=== PATIENT | male | born 1940 | race Caucasian/White ===

== ENCOUNTER → 2016-12-26 | Outpatient (CLI) | payer OTHER ==
[2016-12-26 12:56] LABS: BASO % 0.7 %; BASO ABS # 0.07 K/uL (0-0.2); COMPLETE YES; HEMATOCRIT 47.2 % (42-52); IG% 0.2 %; LYMPH % 45.6 %; LYMPH ABS # 4.43 K/uL (1.2-3.4); MEAN CELL VOLUME 89.7 fL (80-100); MEAN CORPUSCULAR HEMOGLOBIN 31.4 pg (25-34); MEAN PLATELET VOLUME 10.6 fL (7.4-10.4); MONO % 7.7 %; NEUT % 43.8 %; PLATELET COUNT 307 K/uL (130-400); RED BLOOD COUNT 5.26 M/uL (4.7-6.1); WHITE BLOOD COUNT 9.71 K/uL (4.8-10.8)
[2016-12-26 13:14] LABS: ESTIMATED AVERAGE GLUCOSE 108 mg/dl; HA1C FLAG Normal (Normal)
[2016-12-26 13:17] LABS: ALT/SGPT 32 U/L (12-78); AST/SGOT 18 U/L (15-37); BLOOD UREA NITROGEN 18 mg/dl (7-18); BUN/CREATININE RATIO 20.5 (10-20); CALCIUM 9.2 mg/dl (8.5-10.1); CARBON DIOXIDE 25 mmol/L (21-32); CHLORIDE 104 mmol/L (98-107); CHOLESTEROL 169 mg/dl (0-200); CREATININE 0.88 mg/dl (0.60-1.40); GLUCOSE 102 mg/dl (70-99); POTASSIUM 3.7 mmol/L (3.5-5.1); SODIUM 139 mmol/L (136-145); TRIGLYCERIDES 100 mg/dl (0-150); VERY LOW DENSITY LIPOPROT CALC 20 mg/dl
[2016-12-26 13:18] LABS: ALB/GLOB RATIO 1.1 (0.9-2); ALKALINE PHOSPHATASE 50 U/L (45-117); CHOLESTEROL/HDL RATIO 2.9; HDL CHOLESTEROL 58 mg/dl; LDL CHOLESTEROL CALCULATED 91 mg/dl
== END | disposition home or self-care (01) ==
LOC: C.LABBFT 09:20
PROVIDERS: ATTEND Nurse Practitioner
DX: I10 Essential (primary) hypertension (principal); R73.01 Impaired fasting glucose; E78.00 Pure hypercholesterolemia, unspecified

== ENCOUNTER → 2017-04-28 | Outpatient (CLI) | payer OTHER ==
--- NOTE | 2017-04-28 08:28 | DIAGNOSTIC IMAGING REPORT ---
RIGHT VENOUS DOPP LOWER EXT UNILAT CLINICAL HISTORY: M25.561 Right knee pain Right pain. Edema. Pain. Edema. TECHNIQUE: Ultrasound COMPARISON STUDY: None FINDINGS: Normal study IMPRESSION: Normal study The above report was generated using voice recognition software. It may contain grammatical, syntax or spelling errors. Electronically signed by: Len Dallas M.D. 04/28/2017 8:27 AM Dictated Date/Time: 04/28/2017 8:26 AM
== END | disposition home or self-care (01) ==
LOC: C.ULTR 07:59
PROVIDERS: ATTEND Nurse Practitioner
DX: M25.561 Pain in right knee (principal); R60.0 Localized edema; M79.604 Pain in right leg

== ENCOUNTER → 2018-02-12 | Outpatient (CLI) | payer OTHER ==
[2018-02-12 12:13] LABS: BASO % 0.5 %; BASO ABS # 0.05 K/uL (0-0.2); EOS % 1.8 %; EOS ABS # 0.19 K/uL (0-0.5); HEMATOCRIT 48.6 % (42-52); HEMOGLOBIN 16.7 g/dL (14.0-18.0); IG# 0.02 K/uL (0.00-0.02); LYMPH % 36.2 %; LYMPH ABS # 3.79 K/uL (1.2-3.4); MEAN CELL VOLUME 91.9 fL (80-100); MEAN CORPUSCULAR HEMOGLOBIN 31.6 pg (25-34); MEAN CORPUSCULAR HGB CONC 34.4 g/dl (32-36); MEAN PLATELET VOLUME 10.1 fL (7.4-10.4); MONO % 8.2 %; MONO ABS # 0.86 K/uL (0.11-0.59); NEUT % 53.1 %; NEUT ABS # 5.56 K/uL (1.4-6.5); PLATELET COUNT 298 K/uL (130-400); RED CELL DISTRIBUTION WIDTH SD 46.6 fL (36.4-46.3); WHITE BLOOD COUNT 10.47 K/uL (4.8-10.8)
[2018-02-12 12:33] LABS: HEMOGLOBIN A1C 5.4 % (4.5-5.6)
[2018-02-12 12:36] LABS: ALBUMIN 3.8 gm/dl (3.4-5.0); ALT/SGPT 22 U/L (12-78); AST/SGOT 13 U/L (15-37); BLOOD UREA NITROGEN 16 mg/dl (7-18); CARBON DIOXIDE 27 mmol/L (21-32); CHOLESTEROL 132 mg/dl (0-200); CREATININE 0.81 mg/dl (0.60-1.40); GLUCOSE 99 mg/dl (70-99); POTASSIUM 3.9 mmol/L (3.5-5.1); SODIUM 139 mmol/L (136-145)
[2018-02-12 12:39] LABS: ALKALINE PHOSPHATASE 49 U/L (45-117); LDL CHOLESTEROL CALCULATED 60 mg/dl; TOTAL PROTEIN 7.4 gm/dl (6.4-8.2)
== END | disposition home or self-care (01) ==
LOC: C.LABBFT 09:36
PROVIDERS: ATTEND Nurse Practitioner
DX: E78.00 Pure hypercholesterolemia, unspecified (principal); I10 Essential (primary) hypertension; R73.01 Impaired fasting glucose

== ENCOUNTER 2022-12-19 20:50 | Inpatient (IN) ==
[2022-12-19 22:06] LABS: Partial Thromboplastin Ratio 0.9; Partial Thromboplastin Time 25.9 Seconds (21.0-31.0)
[2022-12-19 22:28] LABS: Bilirubin Direct 0.2 mg/dl (0-0.2); Bilirubin,Total 1.2 mg/dl (0.2-1.0); Calcium 8.9 mg/dl (8.5-10.1); Magnesium 2.1 mg/dl (1.7-2.4); Potassium 3.6 mmol/L (3.5-5.1)
[2022-12-19 22:32] LABS: Troponin I High Sensitivity 291.7 pg/ml (0-20)
[2022-12-19 22:34] LABS: BUN Creatinine Ratio 23.1 (10-20); Creatinine Clr Calc Pharmacy 96.8 ml/min; Est GFR (African American) 98.8 ml/min; Est GFR (Non-African American) 85.3 ml/min; Total Protein 7.3 gm/dl (6.0-8.3)
[2022-12-19 22:38] LABS: Basophils # (auto) 0.08 K/uL (0-0.2); Basophils % (auto) 0.8 %; Eosinophils # (auto) 0.06 K/uL (0-0.50); Eosinophils % (auto) 0.6 %; Hematocrit (blood only) 48.3 % (42.0-52.0); Hemoglobin 16.9 g/dl (14.0-18.0); Immature Granulocytes # (auto) 0.03 K/uL (0.01-0.20); Immature Granulocytes % (auto) 0.3 %; Lymphocytes # (auto) 2.27 K/uL (1.2-3.4); Lymphocytes % (auto) 22.6 %; Mean Corpuscular Hemoglobin 31.1 pg (25.0-34.0); Mean Corpuscular Volume 88.8 fL (80.0-100.0); Mean Platelet Volume 10.1 fL (9.4-12.4); Monocytes # (auto) 1.12 K/uL (0.11-0.59); Monocytes % (auto) 11.1 %; Neutrophils # (auto) 6.49 K/uL (1.40-6.50); Neutrophils % (auto) 64.6 %; Platelet Count 222 K/uL (130-400); RDW Coefficient of Variation 13.3 % (11.5-14.5); RDW Standard Deviation 43.2 fL (36.4-46.3); Red Blood Count 5.44 M/uL (4.70-6.10); White Blood Count 10.05 K/ul (4.8-10.8)
[2022-12-19] MEDS ORDERED: OPTIRAY 320 500ml IV ONE (23:03)
--- NOTE | 2022-12-19 23:28 | CT Scan Report ---
Exam(s): CTA CHEST IV Amt: 108ml EXAM: CT Chest With Intravenous Contrast CLINICAL HISTORY: Reason for exam: ro PE. TECHNIQUE: Axial computed tomographic images of the chest with intravenous contrast. CTDI is 22.2 mGy and DLP is 807.38 mGy-cm. Automated exposure control was utilized for the study. A dose lowering technique was utilized adhering to the principles of ALARA. COMPARISON: No relevant prior studies available. FINDINGS: Evaluation is limited by respiratory motion. There is a 5 cm bulla at the medial left lung base. Moderate centrilobular emphysema is noted. There is no airspace consolidation, pulmonary infarct pulmonary mass, or central endobronchial lesion. There is no evidence of pleural effusion or pneumothorax. Thoracic aorta is calcified but normal in caliber. There is no evidence of dissection. There is adequate pulmonary artery opacification. Main pulmonary artery is normal in caliber. There is an acute saddle pulmonary embolism with bilateral lobar, segmental, and subsegmental emboli involving all lung lobes. There is evidence of right ventricular strain with RV/LV ratio measuring 1.7. Heart size is normal. Coronary arteries are calcified. There is no pericardial effusion. There is no adenopathy. There is no acute osseous abnormality. IMPRESSION: 1. Acute saddle pulmonary embolism. Significant bilateral clot burden extending through the lobar, segmental, and subsegmental branches of all lung lobes. 2. Positive for right ventricular strain. RV/LV ratio 1.7. Communications: Call Doctor Pulmonary Embolism Electronically signed by: Jennifer Christy M.D. 12/19/22 23:27 PM
[2022-12-19 23:29] LABS: Base Excess VBG -1.1 mEq/L; HCO3 VBG 24 mmol/L; Oxygen Saturation VBG 62.2 %; PCO2 VBG 42 mmHg (38-50); PO2 VBG 34 mmHg; pH VBG 7.37 (7.36-7.41)
[2022-12-19 23:34] LABS: Influenza A virus by PCR Negative (Neg); Influenza B virus by PCR Negative (Neg); RSV by PCR Negative (Neg); SARS CoV2 RNA(COVID-19) Ceph NEGATIVE (Negative)
[2022-12-19] MEDS ORDERED: fentaNYL citrate PF 100 MCG/2 ML VIAL IV STA (23:39)
[2022-12-19] MEDS ORDERED: Heparin IV Adult Wt-Based Standard WITH Bolus Protocol IV STA (23:39)
[2022-12-19] MEDS ORDERED: HEPARIN SOD (PORCINE) 1000 UNIT/ML IV ONE (23:54)
[2022-12-20] MEDS: HEPARIN SODIUM/DEXTROSE 25,000 UNITS/500 ML BAG IV SCH ×2 (00:12→15:16)
--- NOTE | 2022-12-20 00:47 | Emergency Department Note ---
History of Present Illness General Stated Complaint: SHINGLES/SHORT OF BREATH Time Seen by Provider: 12/19/22 21:22 History of Present Illness Provider Complaint: shortness of breath and cough Onset (ago): day(s) (3) Severity: moderate Consistency/Duration: + progressively worsening Relieved By: + nothing Exacerbated By: + exertion and + coughing Context: + recent illness Associated symptoms: + cough, + sputum production and + chest congestion; no chest pain, no wheezing, no hemoptysis or no nausea/vomiting Home Medications Medication Instructions Recorded Confirmed Type lisinopril 20 1 tab PO QAM #90 tabs 11/07/22 12/19/22 Rx mg-hydrochlorothiazide 25 mg tablet atorvastatin 10 mg tablet (Lipitor) 10 mg PO HS #90 tabs 11/30/22 12/19/22 Rx indomethacin 50 mg capsule 50 mg PO TID PRN gout flare up 11/30/22 12/19/22 Rx #30 caps Allergies Allergy/AdvReac Type Severity Reaction Status Date / Time aspirin Allergy Severe HIVES, Verified 12/19/22 23:53 SWELLING IN FACE pneumococcal 7-valent Allergy Unknown Unknown Verified 12/19/22 23:53 conjugate to [From Prevnar] tetanus and diphtheria Allergy Unknown Unknown Verified 12/19/22 23:53 toxoids [From TDVAX] Past Med/Surg History Medical History Cataract Hx of gout Hypertension Surgical History History of cataract surgery RT History of tooth extraction Family History Denies family history of Ovarian cancer Prostate cancer Myocardial infarction Breast cancer Colorectal cancer Social History Smoking Status: Unknown if ever smoked Tobacco Type: Smokeless Tobacco (Dip or Chew) Second Hand Exposure: No; Hx Alcohol Use: Yes Alcohol type: beer Alcohol Intake Frequency: Monthly or Less Hx Substance Use: No Preferred Language: Kosovan Communication Ability: Effective Visual Impairment: Limited Hearing Ability: Use of Hearing Aid Button Station Worker Required: No Beliefs That Will Affect Care: None marital status: Current Living Situation: Spouse current occupational status: retired Feels Safe at Home: Yes Childhood Exposure to Second-Hand Smoke: No caffeine: Yes during the past year weight has: remained stable Dental Care, Regularly: No Physical Activity Frequency: Daily Seatbelt Use: always Sunscreen Use: No Assistive Devices: Denture - Upper, Denture - Lower, Glasses and Hearing Aid - Bilateral Physical Exam Vital Signs: Vital Signs - 24 hr 12/19/22 21:01 12/19/22 22:11 12/19/22 23:35 Temperature 36.8 C Temperature Source Oral Pulse Rate 150 H Pulse Rate [Left R adial] 113 H 112 H Pulse Rhythm Regular Pulse Rhythm [Left Radial] Regular Regular Pulse Strength Normal Pulse Strength [Le ft Radial] Normal Normal Respiratory Rate 17 15 17 Respiratory Effort / Characteristics Non-Labored Sponta neous Non-Labored Sponta neous Non-Labored Respiratory Depth Normal Normal Normal Respiratory Patter n Regular Regular Regular Blood Pressure 164/102 H Blood Pressure [Ri ght Arm] 147/91 H 155/110 H Blood Pressure Nelda n 122 Blood Pressure Nelda n [Right Arm] 109 125 Pulse Oximetry 87 L 93 92 Oxygen Delivery Me thod Room Air Nasal Cannula Nasal Cannula Oxygen Flow Rate 3 3 Sepsis Recent Feve r Within 48 Hours No Sepsis New/Unexpla ined Change in Men shawn Status No Sepsis Action Take n by Nursing No Action Required 12/20/22 00:47 Temperature Temperature Source Pulse Rate Pulse Rate [Left R adial] 107 H Pulse Rhythm Pulse Rhythm [Left Radial] Regular Pulse Strength Pulse Strength [Le ft Radial] Normal Respiratory Rate 16 Respiratory Effort / Characteristics Non-Labored Sponta neous Respiratory Depth Normal Respiratory Patter n Regular Blood Pressure Blood Pressure [Ri ght Arm] 146/99 H Blood Pressure Nelda n Blood Pressure Nelda n [Right Arm] 114 Pulse Oximetry 93 Oxygen Delivery Me thod Nasal Cannula Oxygen Flow Rate 3 Sepsis Recent Feve r Within 48 Hours Sepsis New/Unexpla ined Change in Men shawn Status Sepsis Action Take n by Nursing Physical Exam: Physical Exam HENT: Exam performed. - Head: Normocephalic and atraumatic. NECK: Normal range of motion. Neck supple. No JVD present. No spinous process tenderness present. No rigidity. No tracheal deviation and normal range of motion present. CV: Tachycardic rate, regular rhythm, normal heart sounds and intact distal pulses. There is no peripheral edema. Palpable radial pulses bue. PULM/CHEST: Tachypneic. No stridor. He has no wheezes. He has no rales. ABD: The abdomen is soft. He has no distension. No mass is present. There is no tenderness. There is no rebound, no guarding, LYMPH: No cervical adenopathy. NEURO: Motor and sensation grossly intact. SKIN: Skin is warm and dry. He is not diaphoretic. Course Course 2121: The patient was evaluated in room C5. A complete history and physical exam was performed Cardiac monitoring: An order was placed for continuous cardiac monitoring. The monitor shows a rate of 130 with sinus tachycardia rhythm interpreted by me Patient was found to be hypoxic on room air. Supplemental oxygen was applied via nasal cannula which improved the patient's oxygen saturation. 2339: Vital signs stable on supplemental oxygen via nasal cannula. Patient reports no shortness of breath while on oxygen. Labs are within normal limits with exception of a troponin of 291.7 as well as a elevated BNP of 156. CTA of the chest shows acute saddle pulmonary embolus with significant bilateral clot burden and extending into the lobar segmental and subsegmental branches of all the lung lobes. There is right ventricular strain. I discussed the case with the ICU team Jsoe SHEET HEATER who asked me to speak with ICU attending Dr. Robins on his cell phone [phone] about potentially giving this patient tPA given his right ventricular strain and elevated troponin. Spoke with Dr. Robins and he stated that if the patient is not hypotensive and tolerating supplemental oxygen well no need for tPA at this time and to begin heparin. [facility] team notified. Administered Medications Heparin Sodium/Dextrose (Heparin Sodium/Dextrose) 25,000 units in 500 mls @ 0.02 mls/hr IV .Q24H [facility]; Protocol Stop: 01/18/23 23:44 Last Admin: 12/20/22 00:12 Dose: 1,650 units/hr, 33 mls/hr Documented By: NERY Co-signed By: SALVADOR Discontinued Medications Fentanyl Citrate (Fentanyl Citrate 100 Mcg/2 Ml Vial) 100 mcg IV NOW STA Stop: 12/19/22 23:40 Last Admin: 12/20/22 00:15 Dose: Not Given Documented By: NERY Heparin Sodium (Porcine) (Heparin Sod (Porcine) 1000 Unit/Ml) 1 units IV NOW ONE Stop: 12/19/22 23:55 Last Admin: 12/20/22 00:12 Dose: 1 units Documented By: NERY Co-signed By: SALVADOR Heparin Sodium/Dextrose (Heparin Iv Adult Wt-Based Standard With Bolus Protocol) 1 each IV NOW STA; Protocol Stop: 12/19/22 23:40 Last Admin: 12/20/22 00:14 Dose: 1 each Documented By: NERY Ioversol (Optiray 320 500ml) 108 ml IV ONCE ONE Stop: 12/19/22 23:04 Last Admin: 12/19/22 23:03 Dose: 108 ml Documented By: ZEYNEP Medical Decision Making Laboratory Data Attestation: I reviewed the patient's lab results. 12/19/22 21:11 12/19/22 21:11 Lab Results 12/19/22 12/19/22 12/19/22 Range/Units 21:11 21:11 21:11 WBC 10.05 (4.8-10.8) K/ul RBC 5.44 (4.70-6.10) M/uL Hgb 16.9 (14.0-18.0) g/dl Hct 48.3 (42.0-52.0) % MCV 88.8 (80.0-100.0) fL MCH 31.1 (25.0-34.0) pg MCHC 35.0 (32.0-36.0) g/dL RDW Std Deviation 43.2 (36.4-46.3) fL RDW Coeff of Manuel 13.3 (11.5-14.5) % Plt Count 222 (130-400) K/uL MPV 10.1 (9.4-12.4) fL Immature Gran % (Auto) 0.3 % Neut % (Auto) 64.6 % Lymph % (Auto) 22.6 % [place] % (Auto) 11.1 % Eos % (Auto) 0.6 % Baso % (Auto) 0.8 % Neut # (Auto) 6.49 (1.40-6.50) K/uL Lymph # (Auto) 2.27 (1.2-3.4) K/uL [place] # (Auto) 1.12 H (0.11-0.59) K/uL Eos # (Auto) 0.06 (0-0.50) K/uL Baso # (Auto) 0.08 (0-0.2) K/uL Immature Gran # (Auto) 0.03 (0.01-0.20) K/uL PT (9.0-12.0) Seconds INR (0.9-1.1) APTT (21.0-31.0) Seconds PTT Ratio VBG pH (7.36-7.41) VBG pCO2 (38-50) mmHg VBG pO2 mmHg VBG HCO3 mmol/L VBG O2 Saturation % VBG Base Excess mEq/L Sodium 137 (136-145) mmol/L Potassium 3.6 (3.5-5.1) mmol/L Chloride 104 (98-107) mmol/L Carbon Dioxide 22 (21-32) mmol/L Anion Gap 11 (3-11) BUN 18 (6-23) mg/dl Creatinine 0.78 (0.6-1.4) mg/dl Est Cr Clr Drug Dosing 96.8 ml/min Est GFR ( Amer) 98.8 ml/min Est GFR (Non-Af Amer) 85.3 ml/min BUN/Creatinine Ratio 23.1 H (10-20) Glucose 138 H (70-99(Fasting)) mg/dl Calcium 8.9 (8.5-10.1) mg/dl Magnesium 2.1 (1.7-2.4) mg/dl Total Bilirubin 1.2 H (0.2-1.0) mg/dl Direct Bilirubin 0.2 (0-0.2) mg/dl AST 15 (13-39) U/L ALT 15 (7-52) U/L Alkaline Phosphatase 56 (34-104) U/L Troponin I High Sens 291.7 H* (0-20) pg/ml B-Natriuretic Peptide 156 H (0-100) pg/ml Total Protein 7.3 (6.0-8.3) gm/dl Albumin 4.0 (3.4-5.0) gm/dl Lipase 29 (11-82) U/L SARS-CoV-2 (PCR) (Negative) Influenza Type A (PCR) (Neg) Influenza Type B (PCR) (Neg) RSV (RT-PCR) (Neg) 12/19/22 12/19/22 12/19/22 Range/Units 21:11 22:00 23:22 WBC (4.8-10.8) K/ul RBC (4.70-6.10) M/uL Hgb (14.0-18.0) g/dl Hct (42.0-52.0) % MCV (80.0-100.0) fL MCH (25.0-34.0) pg MCHC (32.0-36.0) g/dL RDW Std Deviation (36.4-46.3) fL RDW Coeff of Manuel (11.5-14.5) % Plt Count (130-400) K/uL MPV (9.4-12.4) fL Immature Gran % (Auto) % Neut % (Auto) % Lymph % (Auto) % [place] % (Auto) % Eos % (Auto) % Baso % (Auto) % Neut # (Auto) (1.40-6.50) K/uL Lymph # (Auto) (1.2-3.4) K/uL [place] # (Auto) (0.11-0.59) K/uL Eos # (Auto) (0-0.50) K/uL Baso # (Auto) (0-0.2) K/uL Immature Gran # (Auto) (0.01-0.20) K/uL PT 11.0 (9.0-12.0) Seconds INR 1.0 (0.9-1.1) APTT 25.9 (21.0-31.0) Seconds PTT Ratio 0.9 VBG pH 7.37 (7.36-7.41) VBG pCO2 42 (38-50) mmHg VBG pO2 34 mmHg VBG HCO3 24 mmol/L VBG O2 Saturation 62.2 % VBG Base Excess -1.1 mEq/L Sodium (136-145) mmol/L Potassium (3.5-5.1) mmol/L Chloride (98-107) mmol/L Carbon Dioxide (21-32) mmol/L Anion Gap (3-11) BUN (6-23) mg/dl Creatinine (0.6-1.4) mg/dl Est Cr Clr Drug Dosing ml/min Est GFR ( Amer) ml/min Est GFR (Non-Af Amer) ml/min BUN/Creatinine Ratio (10-20) Glucose (70-99(Fasting)) mg/dl Calcium (8.5-10.1) mg/dl Magnesium (1.7-2.4) mg/dl Total Bilirubin (0.2-1.0) mg/dl Direct Bilirubin (0-0.2) mg/dl AST (13-39) U/L ALT (7-52) U/L Alkaline Phosphatase (34-104) U/L Troponin I High Sens (0-20) pg/ml B-Natriuretic Peptide (0-100) pg/ml Total Protein (6.0-8.3) gm/dl Albumin (3.4-5.0) gm/dl Lipase (11-82) U/L SARS-CoV-2 (PCR) NEGATIVE (Negative) Influenza Type A (PCR) Negative (Neg) Influenza Type B (PCR) Negative (Neg) RSV (RT-PCR) Negative (Neg) Imaging Data Attestation: I personally reviewed and interpreted this imaging study as follows: My Impression: Chest x-ray negative. Airway clear. No pneumothorax. No consolidation. No cardiomegaly or cephalization.. No free air under the diaphragm. No fractures of the skeletal structures. Radiologist's Impression: Chest CTA 12/19/22 21:30 CR Exam(s): CTA CHEST IV Amt: 108ml EXAM: CT Chest With Intravenous Contrast CLINICAL HISTORY: Reason for exam: ro PE. TECHNIQUE: Axial computed tomographic images of the chest with intravenous contrast. CTDI is 22.2 mGy and DLP is 807.38 mGy-cm. Automated exposure control was utilized for the study. A dose lowering technique was utilized adhering to the principles of ALARA. COMPARISON: No relevant prior studies available. FINDINGS: Evaluation is limited by respiratory motion. There is a 5 cm bulla at the medial left lung base. Moderate centrilobular emphysema is noted. There is no airspace consolidation, pulmonary infarct pulmonary mass, or central endobronchial lesion. There is no evidence of pleural effusion or pneumothorax. Thoracic aorta is calcified but normal in caliber. There is no evidence of dissection. There is adequate pulmonary artery opacification. Main pulmonary artery is normal in caliber. There is an acute saddle pulmonary embolism with bilateral lobar, segmental, and subsegmental emboli involving all lung lobes. There is evidence of right ventricular strain with RV/LV ratio measuring 1.7. Heart size is normal. Coronary arteries are calcified. There is no pericardial effusion. There is no adenopathy. There is no acute osseous abnormality. IMPRESSION: 1. Acute saddle pulmonary embolism. Significant bilateral clot burden extending through the lobar, segmental, and subsegmental branches of all lung lobes. 2. Positive for right ventricular strain. RV/LV ratio 1.7. Communications: Call Doctor Pulmonary Embolism Electronically signed by: Jennifer Christy M.D. 12/19/22 23:27 PM ECG Data Attestation: I personally reviewed and interpreted this ECG as follows: Interpretation: EKG #1 at 2057: Sinus tachycardia with a rate of 149. No ST elevation or ST depression. EKG #2 at 2129: Sinus tachycardia with a rate of 118. MD QRS and QTc intervals within normal limits. No ST elevation or ST depression. Right bundle branch block present. [facility] Narrative 2121: The patient was evaluated in room C5. A complete history and physical exam was performed Cardiac monitoring: An order was placed for continuous cardiac monitoring. The monitor shows a rate of 130 with sinus tachycardia rhythm interpreted by me Patient was found to be hypoxic on room air. Supplemental oxygen was applied via nasal cannula which improved the patient's oxygen saturation. 9: Vital signs stable on supplemental oxygen via nasal cannula. Patient reports no shortness of breath while on oxygen. Labs are within normal limits with exception of a troponin of 291.7 as well as a elevated BNP of 156. CTA of the chest shows acute saddle pulmonary embolus with significant bilateral clot burden and extending into the lobar segmental and subsegmental branches of all the lung lobes. There is right ventricular strain. I discussed the case with the ICU team Jose BRAXTON who asked me to speak with ICU attending Dr. Robins on his cell phone [phone] about potentially giving this patient tPA given his right ventricular strain and elevated troponin. Spoke with Dr. Robins and he stated that if the patient is not hypotensive and tolerating supplemental oxygen well no need for tPA at this time and to begin heparin. [facility] team notified. Impression & Plan Acute saddle pulmonary embolism Critical Care Time Critical Care Time: Yes Total Critical Care Time: 80 I have personally spent greater than 80 minutes of critical care time in the direct management of this patient. This includes bedside care, interpretation of diagnostic studies, and testing, discussion with consultants, patient, and family members, and other required patient management activities. This 80 minutes is in excess of all separately billable procedures. Discharge Plan Visit Data Chief Complaint: Shortness of Breath/Dyspnea Stated Complaint: SHINGLES/SHORT OF BREATH ED Provider: Moshe Chen Discharge Problem: Acute saddle pulmonary embolism Patient Disposition: Admitted As Inpatient Prescriptions Prescriptions: No Action lisinopril-hydrochlorothiazide 20-25 mg tablet 1 tab PO QAM Qty: 90 3RF atorvastatin [Lipitor] 10 mg tablet 10 mg PO HS Qty: 90 3RF indomethacin 50 mg capsule 50 mg PO TID PRN (Reason: gout flare up ) Qty: 30 1RF Referrals Referrals: Eden Boo CRNP [Primary Care Provider] -
[2022-12-20] MEDS ORDERED: traMADol HCL 50 MG TABLET PO PRN (01:18)
[2022-12-20] MEDS ORDERED: valACYclovir HCL 500 MG TABLET PO ONE (01:20)
[2022-12-20] MEDS ORDERED: ACETAMINOPHEN 325 MG TAB PO PRN (02:28)
[2022-12-20] MEDS ORDERED: ONDANSETRON INJ 2 MG/ML 2 ML VIAL IV PRN (02:28)
--- NOTE | 2022-12-20 05:04 | History & Physical Report ---
Date of Service December 20, 2022 Assessment & Plan (1) Acute saddle pulmonary embolism: (2) Bilateral pulmonary embolism: (3) Gout: (4) Hypercholesterolemia: (5) Hypertension: Plan Acute saddle pulmonary embolism/extensive bilateral pulmonary emboli in lobar, segmental and subsegmental lobes- ED discussed case with pulmonology, and patient will be managed on IV heparin per protocol Admit to monitored bed for close following of oxygenation Right heart strain/NSTEMI/hypertension- The patient will be admitted to telemetry for serial cardiac enzymes, serial EKG's, cardiac rhythm monitoring and a 2-D echocardiogram with Dopplers. Secondary to stress of PE Troponin 291.7 CT scan notes right heart strain Systolic blood pressure in the 140s to 150s Diastolic blood pressure in the 90s to 100s Plan IV heparin as noted above Allow mildly elevated blood pressure in this range overnight Change to cardizem if still increased BP with increased HR overnight Herpes zoster rash right chest wall- Valtrex 1 g 3 times daily Contact precautions, precautions Hyperlipidemia- Continue atorvastatin 10 mg at bedtime Gout- Not active at this time Admission and Anticipated Discharge Date Admission Date: December 20, 2022 History of Present Illness Chief Complaint: The patient reports that he had COVID-19 infection back in July, and has never felt right since that time. He continues to have intermittent problems with fatigue and shortness of breath, however, over the past several days he noticed an acute worsening of shortness of breath and developed severe chest pain. At the same time he developed a painful vesicular rash over his right hemithorax. Primary Care Provider: ANABELLE Shirley The patient is a 82-year-old male with a past medical history including hyperlipidemia, hypertension, and gout flares. He reports that he had contracted COVID-19 infection back in July, and had significant persistent symptoms of fatigue and mild shortness of breath after that time. He reports over the past several days he had developed an acute worsening of shortness of breath and developed generalized chest pain worse with breathing. At the same time that his breathing worsened last week, he developed a painful rash over his right hemithorax. He was treating this at home by laying around, however, his family encouraged him strongly to come to the ED for assessment, which she did today. CT angiography of chest showed an acute saddle pulmonary embolus, and significant bilateral clot burden involving lobar, segmental and subsegmental areas, along with significant right ventricular strain. Significant laboratories: Troponin 291.7, total bilirubin 1.2, BNP 156, WBC 10.05, hemoglobin 16.9, hematocrit 40.3, glucose 138 Allergies Allergy/AdvReac Type Severity Reaction Status Date / Time aspirin Allergy Severe HIVES, Verified 12/19/22 23:53 SWELLING IN FACE pneumococcal 7-valent Allergy Unknown Unknown Verified 12/19/22 23:53 conjugate to [From Prevnar] tetanus and diphtheria Allergy Unknown Unknown Verified 12/19/22 23:53 toxoids [From TDVAX] Home Medications Medication Instructions Recorded Confirmed Type lisinopril 20 1 tab PO QAM #90 tabs 11/07/22 12/19/22 Rx mg-hydrochlorothiazide 25 mg tablet atorvastatin 10 mg tablet (Lipitor) 10 mg PO HS #90 tabs 11/30/22 12/19/22 Rx indomethacin 50 mg capsule 50 mg PO TID PRN gout flare up 11/30/22 12/19/22 Rx #30 caps Past Med/Surg History Medical History Cataract Hx of gout Hypertension Surgical History History of cataract surgery RT History of tooth extraction Family History Denies family history of Ovarian cancer Prostate cancer Myocardial infarction Breast cancer Colorectal cancer Social History Smoking Status: Never smoker Tobacco Type: Smokeless Tobacco (Dip or Chew) Second Hand Exposure: No; Do You Dip or Chew Tobacco: Yes; Hx Alcohol Use: Yes Alcohol type: wine Alcohol Intake Frequency: Monthly or Le ss Hx Substance Use: No Preferred Language: Hungarian Communication Ability: Effective Visual Impairment: Limited Hearing Ability: Use of Hearing Aid 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 Beliefs That Will Affect Care: None marital status: Current Living Situation: Spouse current occupational status: retired Feels Safe at Home: Yes Safety Concerns: Feels Safe At This Time Childhood Exposure to Second-Hand Smoke: No caffeine: Yes during the past year weight has: remained stable Dental Care, Regularly: No Physical Activity Frequency: Daily Seatbelt Use: always Sunscreen Use: No Assistive Devices: Glasses Review of Systems Review of Systems: The patient denies palpitations, lower extremity swelling, sore throat, fevers, chills, sweats, nausea, vomiting, diarrhea , constipation, abdominal pain, pelvic pain, blood in urine or stool, dysuria, urinary frequency or urgency, lightheadedness, dizziness, headache, memory loss, loss of consciousness, rash, abnormal bruising or bleeding, imbalance, focal weakness, numbness or tingling in arms or legs, generalized arthralgias or myalgias, back or neck pain, or night sweats. The review of systems is otherwise negative other than for that already noted above, and at least 10 systems have been reviewed. Physical Exam Physical Exam: The patient is awake, alert and oriented 3, well developed and well nourished, normocephalic and atraumatic, lying in bed and in no acute distress. HEENT--PERRL, EOMI, mucous membranes and oropharynx dry. Neck--supple. No JVD. No bruits. Thyroid normal, trachea midline, no adenopathy. Heart--normal S1 and S2. No murmurs, rubs or gallops. Lungs--decreased breath sounds throughout. Mild respiratory distress, no ac cessory muscle use. Abdomen--normal bowel sounds and soft. Nontender. Nondistended, no hernias or masses, no organomegaly. Extremities--no cyanosis or clubbing. 1+ bilateral pretibial edema. Dermatologic--painful dermatomal vesicular rash over right hemithorax from mid axilla line toward sternum Neurologic--cranial nerves II through XII grossly intact. Rheumatologic--limited exam Psychiatric--normal affect. Results & Data Results & Data ([facility]) Vital Signs (Past 12 Hours) Vital Signs Temp Pulse Pulse Resp BP BP BP 12/20/22 03:00 12/20/22 03:00 36.6 C 118 H 22 152/105 H 12/20/22 02:25 106 H 16 105/74 12/20/22 02:14 37.1 C 106 H 15 146/94 H 12/20/22 02:00 105 H 12/19/22 21:29 115 H 12/20/22 01:23 107 H 15 138/85 12/20/22 00:47 107 H 16 146/99 H 12/19/22 23:35 112 H 17 155/110 H 12/19/22 22:11 113 H 15 147/91 H 12/19/22 21:01 36.8 C 150 H 17 164/102 H Pulse Ox O2 Del Method O2 Flow Rate 12/20/22 03:00 Nasal Cannula 4 12/20/22 03:00 92 Nasal Cannula 4 12/20/22 02:25 94 Nasal Cannula 3 12/20/22 02:14 94 Nasal Cannula 3 12/20/22 02:00 12/19/22 21:29 12/20/22 01:23 94 Nasal Cannula 3 12/20/22 00:47 93 Nasal Cannula 3 12/19/22 23:35 92 Nasal Cannula 3 12/19/22 22:11 93 Nasal Cannula 3 12/19/22 21:01 87 L Room Air Laboratory Results Laboratory Results WBC 10.05 K/ul (4.8-10.8) 12/19/22 21:11 RBC 5.44 M/uL (4.70-6.10) 12/19/22 21:11 Hgb 16.9 g/dl (14.0-18.0) 12/19/22 21:11 Hct 48.3 % (42.0-52.0) 12/19/22 21:11 MCV 88.8 fL (80.0-100.0) 12/19/22 21:11 MCH 31.1 pg (25.0-34.0) 12/19/22 21:11 MCHC 35.0 g/dL (32.0-36.0) 12/19/22 21:11 RDW Std Deviation 43.2 fL (36.4-46.3) 12/19/22 21:11 RDW Coeff of Manuel 13.3 % (11.5-14.5) 12/19/22 21:11 Plt Count 222 K/uL (130-400) 12/19/22 21:11 MPV 10.1 fL (9.4-12.4) 12/19/22 21:11 Immature Gran % (Auto) 0.3 % 12/19/22 21:11 Neut % (Auto) 64.6 % 12/19/22 21:11 Lymph % (Auto) 22.6 % 12/19/22 21:11 [place] % (Auto) 11.1 % 12/19/22 21:11 Eos % (Auto) 0.6 % 12/19/22 21:11 Baso % (Auto) 0.8 % 12/19/22 21:11 Neut # (Auto) 6.49 K/uL (1.40-6.50) 12/19/22 21:11 Lymph # (Auto) 2.27 K/uL (1.2-3.4) 12/19/22 21:11 [place] # (Auto) 1.12 K/uL (0.11-0.59) H 12/19/22 21:11 Eos # (Auto) 0.06 K/uL (0-0.50) 12/19/22 21:11 Baso # (Auto) 0.08 K/uL (0-0.2) 12/19/22 21:11 Immature Gran # (Auto) 0.03 K/uL (0.01-0.20) 12/19/22 21:11 PT 11.0 Seconds (9.0-12.0) 12/19/22 21:11 INR 1.0 (0.9-1.1) 12/19/22 21:11 APTT 25.9 Seconds (21.0-31.0) 12/19/22 21:11 PTT Ratio 0.9 12/19/22 21:11 VBG pH 7.37 (7.36-7.41) 12/19/22 23:22 VBG pCO2 42 mmHg (38-50) 12/19/22 23:22 VBG pO2 34 mmHg 12/19/22 23:22 VBG HCO3 24 mmol/L 12/19/22 23:22 VBG O2 Saturation 62.2 % 12/19/22 23:22 VBG Base Excess -1.1 mEq/L 12/19/22 23:22 Sodium 137 mmol/L (136-145) 12/19/22 21:11 Potassium 3.6 mmol/L (3.5-5.1) 12/19/22 21:11 Chloride 104 mmol/L (98-107) 12/19/22 21:11 Carbon Dioxide 22 mmol/L (21-32) 12/19/22 21:11 Anion Gap 11 (3-11) 12/19/22 21:11 BUN 18 mg/dl (6-23) 12/19/22 21:11 Creatinine 0.78 mg/dl (0.6-1.4) 12/19/22 21:11 Est Cr Clr Drug Dosing 96.8 ml/min 12/19/22 21:11 Est GFR ( Amer) 98.8 ml/min 12/19/22 21:11 Est GFR (Non-Af Amer) 85.3 ml/min 12/19/22 21:11 BUN/Creatinine Ratio 23.1 (10-20) H 12/19/22 21:11 Glucose 138 mg/dl (70-99(Fasting)) H 12/19/22 21:11 Calcium 8.9 mg/dl (8.5-10.1) 12/19/22 21:11 Magnesium 2.1 mg/dl (1.7-2.4) 12/19/22 21:11 Total Bilirubin 1.2 mg/dl (0.2-1.0) H 12/19/22 21:11 Direct Bilirubin 0.2 mg/dl (0-0.2) 12/19/22 21:11 AST 15 U/L (13-39) 12/19/22 21:11 ALT 15 U/L (7-52) 12/19/22 21:11 Alkaline Phosphatase 56 U/L (34-104) 12/19/22 21:11 Troponin I High Sens 972.8 pg/ml (0-20) H* D 12/20/22 03:31 B-Natriuretic Peptide 156 pg/ml (0-100) H 12/19/22 21:11 Total Protein 7.3 gm/dl (6.0-8.3) 12/19/22 21:11 Albumin 4.0 gm/dl (3.4-5.0) 12/19/22 21:11 Lipase 29 U/L (11-82) 12/19/22 21:11 SARS-CoV-2 (PCR) NEGATIVE (Negative) 12/19/22 22:00 Influenza Type A (PCR) Negative (Neg) 12/19/22 22:00 Influenza Type B (PCR) Negative (Neg) 12/19/22 22:00 RSV (RT-PCR) Negative (Neg) 12/19/22 22:00 Impressions Chest CTA 12/19/22 21:30 CR Exam(s): CTA CHEST IV Amt: 108ml EXAM: CT Chest With Intravenous Contrast CLINICAL HISTORY: Reason for exam: ro PE. TECHNIQUE: Axial computed tomographic images of the chest with intravenous contrast. CTDI is 22.2 mGy and DLP is 807.38 mGy-cm. Automated exposure control was utilized for the study. A dose lowering technique was utilized adhering to the principles of ALARA. COMPARISON: No relevant prior studies available. FINDINGS: Evaluation is limited by respiratory motion. There is a 5 cm bulla at the medial left lung base. Moderate centrilobular emphysema is noted. There is no airspace consolidation, pulmonary infarct pulmonary mass, or central endobronchial lesion. There is no evidence of pleural effusion or pneumothorax. Thoracic aorta is calcified but normal in caliber. There is no evidence of dissection. There is adequate pulmonary artery opacification. Main pulmonary artery is normal in caliber. There is an acute saddle pulmonary embolism with bilateral lobar, segmental, and subsegmental emboli involving all lung lobes. There is evidence of right ventricular strain with RV/LV ratio measuring 1.7. Heart size is normal. Coronary arteries are calcified. There is no pericardial effusion. There is no adenopathy. There is no acute osseous abnormality. IMPRESSION: 1. Acute saddle pulmonary embolism. Significant bilateral clot burden extending through the lobar, segmental, and subsegmental branches of all lung lobes. 2. Positive for right ventricular strain. RV/LV ratio 1.7. Communications: Call Doctor Pulmonary Embolism Electronically signed by: Jennifer Christy M.D. 12/19/22 23:27 PM Code Status & VTE Plan Code Status Full code VTE Prophylaxis Plan VTE Prophylaxis will be ordered: Yes PG Care Time/CCT Total # of Minutes Spent Total Time Spent with Patient: Total time spent is greater than 50% in coordination of care (as documented) at patient's floor/unit and/or counseling patient: Coding Level of Care Code 01246 INT INP/OBS CARE 3/75MIN Diagnoses Acute saddle pulmonary embolism I26.02 Acute cor pulmonale presence: with acute cor pulmonale Bilateral pulmonary embolism I26.99 Gout M10.9 Hypercholesterolemia E78.00 Hypertension I10 (1) Acute saddle pulmonary embolism Acute cor pulmonale presence: with acute cor pulmonale Qualified Code(s): I26.02 - Saddle embolus of pulmonary artery with acute cor pulmonale
[2022-12-20 06:33] LABS: Basophils # (auto) 0.09 K/uL (0-0.2); Basophils % (auto) 0.8 %; Eosinophils # (auto) 0.04 K/uL (0-0.50); Eosinophils % (auto) 0.4 %; Hematocrit (blood only) 48.3 % (42.0-52.0); Hemoglobin 16.6 g/dl (14.0-18.0); Immature Granulocytes # (auto) 0.05 K/uL (0.01-0.20); Immature Granulocytes % (auto) 0.5 %; Lymphocytes # (auto) 3.71 K/uL (1.2-3.4); Lymphocytes % (auto) 34.5 %; Mean Corpuscular Hemoglobin 30.9 pg (25.0-34.0); Mean Corpuscular Hgb Conc 34.4 g/dL (32.0-36.0); Mean Corpuscular Volume 89.9 fL (80.0-100.0); Monocytes # (auto) 1.15 K/uL (0.11-0.59); Monocytes % (auto) 10.7 %; Neutrophils # (auto) 5.72 K/uL (1.40-6.50); Neutrophils % (auto) 53.1 %; Platelet Count 240 K/uL (130-400); RDW Coefficient of Variation 13.4 % (11.5-14.5); RDW Standard Deviation 43.9 fL (36.4-46.3); Red Blood Count 5.37 M/uL (4.70-6.10); White Blood Count 10.76 K/ul (4.8-10.8)
[2022-12-20 06:34] LABS: Albumin Globulin Ratio 1.4 (0.9-2); Albumin Level 3.8 gm/dl (3.4-5.0); BUN Creatinine Ratio 21.4 (10-20); Calcium 8.8 mg/dl (8.5-10.1); Creatinine Clr Calc Pharmacy 89.2 ml/min; Est GFR (African American) 95.8 ml/min; Est GFR (Non-African American) 82.7 ml/min; Globulin 2.8 gm/dl (2.5-4.0); Potassium 4.4 mmol/L (3.5-5.1); Total Protein 6.6 gm/dl (6.0-8.3)
[2022-12-20 06:45] LABS: INR 1.1 (0.9-1.1); Prothrombin Time 11.4 Seconds (9.0-12.0)
[2022-12-20 07:01] LABS: Partial Thromboplastin Ratio 2.1
--- NOTE | 2022-12-20 07:12 | Ultrasound Report ---
US venous doppler LE BI CLINICAL HISTORY: PE TECHNIQUE: Bilateral lower extremity real-time compression venous ultrasound with Color Doppler imagi ng. Utilizing real-time ultrasonic imaging multiple real time high-resolution ultrasonic images with compression and noncompression maneuvers of the deep venous system in addition to color doppler imagi ng were performed from the common femoral vein through the proximal calf veins. COMPARISON: Right lower extremity venous Doppler 04/28/2017 FINDINGS/IMPRESSION: There is a venous thrombus in the right popliteal cyst and posterior tibial veins. No thrombus is see n in the left. No superficial venous thrombosis is identified. ACT 112: Negative or not required by law. Electronically signed by: Bhavesh Nicole M.D. 12/20/2022 7:10 AM
[2022-12-20 07:28] LABS: Partial Thromboplastin Time 58.4 Seconds (21.0-31.0)
--- NOTE | 2022-12-20 07:47 | XRay Report ---
XR chest 1V portable CLINICAL HISTORY: sob TECHNIQUE: Single frontal radiograph of the chest was obtained. Comparison: None available at the time of this dictation. FINDINGS: No lines and tubes are seen. The cardiomediastinal silhouette is normal. There is mild opacity over t he left lower lung. No evidence of pleural effusion or pneumothorax. IMPRESSION: Mild left lower lung airspace opacity may represent atelectasis, pneumonia, and/or aspiration ACT 112: Negative or not required by law. Electronically signed by: Bhavesh Nicole M.D. 12/20/2022 7:45 AM
[2022-12-20] MEDS: valACYclovir HCL 500 MG TABLET PO SCH ×3 (09:23→20:33)
[2022-12-20] MEDS: LISINOPRIL/HCTZ 20/25MG 1 TAB PO SCH (09:23)
--- NOTE | 2022-12-20 16:23 | Hospitalist Progress Note ---
Date of Service December 20, 2022 Assessment & Plan (1) Acute saddle pulmonary embolism: Plan: Acute saddle/extensive bilateral PE secondary to right lower extremity DVT Likely secondary to sedentary lifestyle Patient has been quite sedentary since his last COVID infection 5 months ago Currently on IV heparin drip Vital signs fairly stable although requiring oxygen per nasal cannula and slightly tachycardic Troponin elevated and CT chest showing signs of right heart strain Echocardiogram completed, report pending We will allow mildly elevated blood pressure (2) Bilateral pulmonary embolism: Plan: Please see above (3) Deep vein thrombosis, lower right extremity: Plan: Likely cause of the PE Management same as PE Please see above (4) Shingles: Plan: Herpes zoster in the right chest wall and right upper back On Valtrex 1 g 3 times daily Continue contact precautions (5) Gout: Plan: Not active at this time (6) Hypercholesterolemia: Plan: Continue statin (7) Hypertension: Plan: Continue lisinopril Admission and Anticipated Discharge Date Admission Date: December 20, 2022 Subjective Patient states that he feels better overall. He walked to the bathroom and did not feel short of breath. He denied feeling dizzy or lightheaded when he walked. On questioning, he stated that he does not have much pain at the site of the rash. Review of Systems Review of Systems: All systems reviewed & are unremarkable except as noted in Subjective Physical Exam Physical Exam: General: Awake, conversant Heart: S1, S2/regular rate and rhythm, no murmur rubs or gallops Lungs: Clear to auscultation bilaterally. Normal effort. Rash noted in right upper back and right hemithorax. Abdomen: Soft/nontender/nondistended. No hepatosplenomegaly Extremities: No clubbing/cyanosis. No edema Behavior: Appropriate, cooperative Results & Data Results & Data ([facility]) Vital Signs (Past 12 Hours) Vital Signs Temp Pulse Pulse Resp BP Pulse Ox O2 Del Method 12/20/22 15:49 100 H 12/20/22 15:23 100 H 12/20/22 08:00 Nasal Cannula 12/20/22 11:00 36.7 C 93 H 18 127/74 97 Room Air 12/20/22 08:00 36.9 C 86 20 148/69 H 97 Nasal Cannula 12/20/22 05:30 103 H 20 138/93 93 Nasal Cannula O2 Flow Rate 12/20/22 15:49 03/14/23 15:23 12/20/22 08:00 4 12/20/22 11:00 12/20/22 08:00 12/20/22 05:30 4 Laboratory Results Abnormal lab results 12/19/22 12/19/22 12/19/22 Range/Units 21:11 21:11 21:11 Lymph # (Auto) (1.2-3.4) K/uL [place] # (Auto) 1.12 H (0.11-0.59) K/uL APTT (21.0-31.0) Seconds BUN/Creatinine Ratio 23.1 H (10-20) Glucose 138 H (70-99(Fasting)) mg/dl Total Bilirubin 1.2 H (0.2-1.0) mg/dl Troponin I High Sens 291.7 H* (0-20) pg/ml B-Natriuretic Peptide 156 H (0-100) pg/ml 12/20/22 12/20/22 12/20/22 Range/Units 03:31 05:51 05:51 Lymph # (Auto) 3.71 H (1.2-3.4) K/uL [place] # (Auto) 1.15 H (0.11-0.59) K/uL APTT (21.0-31.0) Seconds BUN/Creatinine Ratio 21.4 H (10-20) Glucose 129 H (70-99(Fasting)) mg/dl Total Bilirubin (0.2-1.0) mg/dl Troponin I High Sens 972.8 H* D (0-20) pg/ml B-Natriuretic Peptide (0-100) pg/ml 12/20/22 12/20/22 12/20/22 Range/Units 05:51 09:35 15:22 Lymph # (Auto) (1.2-3.4) K/uL [place] # (Auto) (0.11-0.59) K/uL APTT 58.4 H* (21.0-31.0) Seconds BUN/Creatinine Ratio (10-20) Glucose (70-99(Fasting)) mg/dl Total Bilirubin (0.2-1.0) mg/dl Troponin I High Sens 772.5 H* D 480.6 H* D (0-20) pg/ml B-Natriuretic Peptide (0-100) pg/ml Diagnostic Findings Chest CTA 12/19/22 21:30 CR Exam(s): CTA CHEST IV Amt: 108ml EXAM: CT Chest With Intravenous Contrast CLINICAL HISTORY: Reason for exam: ro PE. TECHNIQUE: Axial computed tomographic images of the chest with intravenous contrast. CTDI is 22.2 mGy and DLP is 807.38 mGy-cm. Automated exposure control was utilized for the study. A dose lowering technique was utilized adhering to the principles of ALARA. COMPARISON: No relevant prior studies available. FINDINGS: Evaluation is limited by respiratory motion. There is a 5 cm bulla at the medial left lung base. Moderate centrilobular emphysema is noted. There is no airspace consolidation, pulmonary infarct pulmonary mass, or central endobronchial lesion. There is no evidence of pleural effusion or pneumothorax. Thoracic aorta is calcified but normal in caliber. There is no evidence of dissection. There is adequate pulmonary artery opacification. Main pulmonary artery is normal in caliber. There is an acute saddle pulmonary embolism with bilateral lobar, segmental, and subsegmental emboli involving all lung lobes. There is evidence of right ventricular strain with RV/LV ratio measuring 1.7. Heart size is normal. Coronary arteries are calcified. There is no pericardial effusion. There is no adenopathy. There is no acute osseous abnormality. IMPRESSION: 1. Acute saddle pulmonary embolism. Significant bilateral clot burden extending through the lobar, segmental, and subsegmental branches of all lung lobes. 2. Positive for right ventricular strain. RV/LV ratio 1.7. Communications: Call Doctor Pulmonary Embolism Electronically signed by: Jennifer Christy M.D. 12/19/22 23:27 PM Chest X-Ray 12/19/22 21:30 XR chest 1V portable CLINICAL HISTORY: sob TECHNIQUE: Single frontal radiograph of the chest was obtained. Comparison: None available at the time of this dictation. FINDINGS: No lines and tubes are seen. The cardiomediastinal silhouette is normal. There is mild opacity over the left lower lung. No evidence of pleural effusion or pneumothorax. IMPRESSION: Mild left lower lung airspace opacity may represent atelectasis, pneumonia, and /or aspiration ACT 112: Negative or not required by law. Electronically signed by: Bhavesh Nicole M.D. 12/20/2022 7:45 AM Venous Doppler Study 12/20/22 04:50 US venous doppler LE BI CLINICAL HISTORY: PE TECHNIQUE: Bilateral lower extremity real-time compression venous ultrasound with Color Doppler imaging. Utilizing real-time ultrasonic imaging multiple real time high-resolution ultrasonic images with compression and noncompression maneuvers of the deep venous system in addition to color doppler imaging were performed from the common femoral vein through the proximal calf veins. COMPARISON: Right lower extremity venous Doppler 04/28/2017 FINDINGS/IMPRESSION: There is a venous thrombus in the right popliteal cyst and posterior tibial veins. No thrombus is seen in the left. No superficial venous thrombosis is identified. ACT 112: Negative or not required by law. Electronically signed by: Bhavesh Nicole M.D. 12/20/2022 7:10 AM PG Care Time/CCT Total # of Minutes Spent Total Time Spent with Patient: Total time spent is greater than 50% in coordination of care (as documented) at patient's floor/unit and/or counseling patient: Coding Level of Care Code None Diagnoses Acute saddle pulmonary embolism I26.02 Acute cor pulmonale presence: with acute cor pulmonale Bilateral pulmonary embolism I26.99 Deep vein thrombosis, lower right extremity I82.401 Shingles B02.9 Gout M10.9 Hypercholesterolemia E78.00 Hypertension I10 (1) Acute saddle pulmonary embolism Acute cor pulmonale presence: with acute cor pulmonale Qualified Code(s): I26.02 - Saddle embolus of pulmonary artery with acute cor pulmonale
--- NOTE | 2022-12-20 17:15 | XCELERA ---
[id number]
[2022-12-20] MEDS: ATORVASTATIN 10 MG TAB PO SCH (20:33)
[2022-12-21] MEDS: HEPARIN SODIUM/DEXTROSE 25,000 UNITS/500 ML BAG IV SCH ×2 (05:23→20:46)
--- NOTE | 2022-12-21 06:09 | Electrocardiogram Report ---
Test Reason : Blood Pressure : / mmHG Vent. Rate : 149 BPM Atrial Rate : 357 BPM P-R Int : 000 ms QRS Dur : 094 ms QT Int : 324 ms P-R-T Axes : 000 -50 052 degrees QTc Int : 510 ms Poor data quality, interpretation may be adversely affected Possible Sinus tachycardia Left axis deviation Low voltage QRS Incomplete right bundle branch block Nonspecific ST and T wave abnormality Abnormal ECG No previous ECGs available Confirmed by Jasbir Bell ([id number]) on 12/21/2022 6:08:44 AM Referred By: REFERRED SELF Confirmed By:Jasbir Bell
--- NOTE | 2022-12-21 06:10 | Electrocardiogram Report ---
Test Reason : Blood Pressure : / mmHG Vent. Rate : 118 BPM Atrial Rate : 118 BPM P-R Int : 170 ms QRS Dur : 092 ms QT Int : 316 ms P-R-T Axes : 099 -33 057 degrees QTc Int : 442 ms Poor data quality, interpretation may be adversely affected Sinus tachycardia Left axis deviation Low voltage QRS Incomplete right bundle branch block Inferior infarct , age undetermined Abnormal ECG When compared with ECG of 19-DEC-2022 20:58, Inverted T waves have replaced nonspecific T wave abnormality in Anterior leads Confirmed by Jasbir Bell ([id number]) on 12/21/2022 6:09:33 AM Referred By: REFERRED SELF Confirmed By:Jasbir Bell
[2022-12-21 06:41] LABS: Hematocrit (blood only) 48.1 % (42.0-52.0); Hemoglobin 16.3 g/dl (14.0-18.0); Mean Corpuscular Hemoglobin 30.7 pg (25.0-34.0); Mean Corpuscular Hgb Conc 33.9 g/dL (32.0-36.0); Mean Corpuscular Volume 90.6 fL (80.0-100.0); Platelet Count 238 K/uL (130-400); RDW Coefficient of Variation 13.5 % (11.5-14.5); Red Blood Count 5.31 M/uL (4.70-6.10); White Blood Count 12.47 K/ul (4.8-10.8)
[2022-12-21 06:55] LABS: Albumin Globulin Ratio 1.2 (0.9-2); Albumin Level 3.6 gm/dl (3.4-5.0); BUN Creatinine Ratio 27.2 (10-20); Bilirubin,Total 1.1 mg/dl (0.2-1.0); Calcium 8.4 mg/dl (8.5-10.1); Creatinine Clr Calc Pharmacy 81.4 ml/min; Est GFR (African American) 90.7 ml/min; Est GFR (Non-African American) 78.3 ml/min; Globulin 2.9 gm/dl (2.5-4.0); Magnesium 2.2 mg/dl (1.7-2.4); Potassium 3.5 mmol/L (3.5-5.1); Total Protein 6.5 gm/dl (6.0-8.3)
[2022-12-21 07:26] LABS: INR 1.1 (0.9-1.1); Partial Thromboplastin Ratio 2.2; Prothrombin Time 11.3 Seconds (9.0-12.0)
[2022-12-21 07:32] LABS: Partial Thromboplastin Time 59.2 Seconds (21.0-31.0)
[2022-12-21 07:52] LABS: ALC (manual) 5.99 K/uL (1.2-3.4); ANC (manual) 5.74 K/uL (1.4-6.5); Basophils # (manual) 0.12 K/uL (0-0.2); Basophils % (manual) 1 %; Eosinophils # (manual) 0.12 K/uL (0-0.50); Eosinophils % (manual) 1 %; Large Granular Lymph # (manua 4.24 K/uL; Large Granular Lymph % (manual) 34 %; Lymphocytes # (manual) 1.75 K/uL (1.2-3.4); Lymphocytes % (manual) 14 %; Monocytes % (manual) 4 %; Neutrophils # (manual) 5.74 K/uL (1.40-6.50); Neutrophils % (manual) 46 %; Smudge Cells Present
[2022-12-21] MEDS: LISINOPRIL/HCTZ 20/25MG 1 TAB PO SCH (08:38)
[2022-12-21] MEDS: valACYclovir HCL 500 MG TABLET PO SCH ×3 (08:39→20:47)
--- NOTE | 2022-12-21 11:19 | Hospitalist Progress Note ---
Date of Service December 21, 2022 Assessment & Plan (1) Acute saddle pulmonary embolism: Plan: Acute saddle/extensive bilateral PE secondary to right lower extremity DVT Likely secondary to sedentary lifestyle Patient has been quite sedentary since his last COVID infection 5 months ago Currently on IV heparin drip. will continue for a total of 3 days at least given the extent of clot burden. Will likely p.o. Eliquis upon discharge Vital signs fairly stable although requiring oxygen per nasal cannula. Not tachycardic anymore. 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 Will need outpatient heme-onc referral for hypercoagulable work-up in future (2) Bilateral pulmonary embolism: Plan: Please see above (3) Deep vein thrombosis, lower right extremity: Plan: Likely cause of the PE Management same as PE Please see above (4) Shingles: Plan: Herpes zoster in the right chest wall and right upper back On Valtrex 1 g 3 times daily Continue contact precautions (5) Gout: Plan: Not active at this time (6) Hypercholesterolemia: Plan: Continue statin (7) Hypertension: Plan: Continue lisinopril (8) Lymphocytosis: Plan: * Workup had initiated with recent outpatient visit with Flow Cytometry Analysis performed on 11/30/2022. * Flow cytometry report:"Flow detects an increase in T-cell large granular lymphocytes, which can be seen in some reactive conditions. However a T-cell lymphoproliferative disorder (E.G.T-cell large granular lymphocytic leukemia) cannot be entirely excluded by flow cytometry alone. 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 Hematology/oncology consultation is recommended." * Patient may benefit from Heme/Onc referral moving forward, who might also be able to weigh in on anticoagulation moving forward. Particularly if this does represent a lymphocytic process that certainly might make the patient more coagulopathic. Admission and Anticipated Discharge Date Admission Date: December 20, 2022 Subjective Patient feels well. Denies chest pain. Says that he gets a little short of breath when he walks to the bathroom and back. He denies feeling dizzy or lightheaded Physical Exam Physical Exam: General: Awake, conversant Heart: S1, S2/regular rate and rhythm, no murmur rubs or gallops Lungs: Clear to auscultation bilaterally. Normal effort. Rash noted in right upper back and right hemithorax. Abdomen: Soft/nontender/nondistended. No hepatosplenomegaly Extremities: No clubbing/cyanosis. No edema Behavior: Appropriate, cooperative Results & Data Results & Data Vital Signs (Past 12 Hours) Vital Signs Temp Pulse Resp BP Pulse Ox O2 Del Method O2 Flow Rate 12/21/22 09:51 Nasal Cannula 4 12/21/22 07:42 36.8 C 79 20 122/77 94 Nasal Cannula 4 12/21/22 05:00 36.6 C 81 18 124/78 94 Nasal Cannula 4 12/21/22 03:30 80 16 PG Care Time/CCT Total # of Minutes Spent Total Time Spent: 35 Total Time Spent with Patient: I spent 35 minutes in the care of this patient. The time was spent in talking to the patient, nurse, care management team, gear machine operator, reviewing the chart, formulating plan and placing the orders accordingly. Coding Level of Care Code 43669 SUB INP/OBS CARE 2/35MIN Diagnoses Acute saddle pulmonary embolism I26.02 Acute cor pulmonale presence: with acute cor pulmonale Bilateral pulmonary embolism I26.99 Deep vein thrombosis, lower right extremity I82.401 Shingles B02.9 Gout M10.9 Hypercholesterolemia E78.00 Hypertension I10 Lymphocytosis D72.820 (1) Acute saddle pulmonary embolism Acute cor pulmonale presence: with acute cor pulmonale Qualified Code(s): I26.02 - Saddle embolus of pulmonary artery with acute cor pulmonale
--- NOTE | 2022-12-21 14:25 | Pulmonary Consultation ---
Date of Consultation December 21, 2022 Assessment & Plan (1) Acute saddle pulmonary embolism: Acute cor pulmonale presence: with acute cor pulmonale Qualified Code(s): I26.02 - Saddle embolus of pulmonary artery with acute cor pulmonale (2) Deep vein thrombosis, lower right extremity: (3) Lymphocytosis: Plan IMPRESSION: 82-year-old male presenting with saddle pulmonary embolism in the setting of acute dyspnea now requiring 4 L nasal cannula. Pulmonary medicine consulted for aid in ongoing management. RECOMMENDATIONS: 1. Acute saddle pulmonary embolism - * This would likely be considered an unprovoked event or, if reaching, could refer to this as a provoked event in the setting of prolonged COVID-19 infection with ongoing weakness, poor mobility, and morbid obesity which are not not modifiable and would likely need to be treated the same. * Would continue with heparin drip for now while the patient is hospitalized. Can transition to DOAC when ready for discharge. * Per current guidelines, recommendations would suggest initiation of either apixaban, dabigatran, edoxaban, or rivaroxaban over Coumadin. * Given the unprovoked VTE (or provocation by persistent risk factors that are not modifiable), recommendation would be for offering extended-phase anticoagulation with a DOAC. * Patient would benefit from outpatient follow-up echo to be performed in the next 3-4 months to evaluate for any ongoing concerns for pulmonary hypertension. 2. DVT - * As above * No need for evaluation for IVC filter. 3. Lymphocytosis - * Workup had initiated with recent outpatient visit with Flow Cytometry Analysis performed on 11/30/2022. * Flow cytometry report: * "Flow detects an increase in T-cell large granular lymphocytes, which can be seen in some reactive conditions. However a T-cell lymphoproliferative disorder (E.G.T-cell large granular lymphocytic leukemia) cannot be entirely excluded by flow cytometry alone. 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 Hematology/oncology consultation is recommended." * Patient may benefit from Heme/Onc consultation moving forward, who might also be able to weigh in on anticoagulation moving forward. Particularly if this does represent a lymphocytic process that certainly might make the patient more coagulopathic. * Patient reports symptoms of generalized fatigue and poor appetite. No unintentional weight loss. No night sweats. No other beta symptoms. Thank you for allowing us to participate in the care of this patient. Please reach out to us if we can be of any other assistance. Supervising Physician Co-Signing Physician Notes EMR reviewed. Discussed with KYLE. Physical exam was deferred as the patient is in isolation for varicella. Nonhemodynamically significant acute PE. Agree with recommendations for plan with anticoagulation with eventual transition to DOAC. Given the lack of modifiable risk factors, could make a case for lifelong anticoagulation. Would defer hypercoagulable work-up with the exception of age-appropriate cancer screening. Would continue to wean oxygen as tolerated. If the patient can be up and around and oxygen levels managed appropriately, he may be able to transition to an oral anticoagulant at the time of discharge. Follow-up echocardiogram in 3 months to ensure improvement in the right ventricular systolic function and morphology. We will continue to follow with you. History of Present Illness Reason for Consultation: "extensive b/l PE with RV strain" Requesting Physician: Dr. Hollins Attending Physician: Kiko Hollins MD History of Present Illness Patient is an 82-year-old male with significant past medical history of hypercholesterolemia, impaired [place] glucose, obesity, hypertension, and lymphocytosis. Patient reports that after a COVID-19 infection in July of this past year, then generally weak and fatigued. He admits that he has not been doing much and has been sitting majority of the day. He reports that he did have some shortness of breath back in July during the active infection, however that had since subsided. He had return of symptoms of shortness of breath 2 days ago after a shower. He states that he could not catch his breath until he sat down for several minutes. This prompted visit to the emergency department. During evaluation, the patient was noted to have a large saddle PE with heart strain, troponin leak, and elevated BNP. Fortunately, the patient remained normotensive and saturating well on 3 to 4 L nasal cannula. Patient was started on a heparin drip. Pulmonary medicine was consulted for evaluation and the patient with large PE with significant clot burden. Upon evaluation at bedside, the patient is awake, alert, and oriented. He reports that he is able to ambulate to and from the restroom without significant shortness of breath. He denies any complaints of chest pain, palpitations, dizziness, lightheadedness, presyncope, hemoptysis, nausea, vomiting, or abdominal discomfort. The patient reports no personal history of blood clots/b leeding disorders. He reports no family history of the same. Patient has a prior history of smoking. He reports approximately a pack a day for 20 years. He quit 30 years ago. Prior to this past week, he has had no sustained issues with his breathing. He is able to carry on his activities of daily living including ambulating up and down steps without issue. He reports no history of wheezing, chronic cough, recent hospitalizations for pulmonary issues, recurrent pneumonias, or antibiotic/steroid use for lung infections. Otherwise, the patient reports feeling much better than when he initially arrived to this institution. Allergies Allergy/AdvReac Type Severity Reaction Status Date / Time aspirin Allergy Severe HIVES, Verified 12/19/22 23:53 SWELLING IN FACE pneumococcal 7-valent Allergy Unknown Unknown Verified 12/19/22 23:53 conjugate to [From Prevnar] tetanus and diphtheria Allergy Unknown Unknown Verified 12/19/22 23:53 toxoids [From TDVAX] Home Medications Medication Instructions Recorded Confirmed Type lisinopril 20 1 tab PO QAM #90 tabs 11/07/22 12/19/22 Rx mg-hydrochlorothiazide 25 mg tablet atorvastatin 10 mg tablet (Lipitor) 10 mg PO HS #90 tabs 11/30/22 12/19/22 Rx indomethacin 50 mg capsule 50 mg PO TID PRN gout flare up 11/30/22 12/19/22 Rx #30 caps Patient History Medical History Cataract Hx of gout Hypertension Surgical History History of cataract surgery RT History of tooth extraction Family History Denies family history of Ovarian cancer Prostate cancer Myocardial infarction Breast cancer Colorectal cancer Social History Smoking Status: Never smoker Tobacco Type: Smokeless Tobacco (Dip or Chew) Second Hand Exposure: No; Hx Alcohol Use: Yes Alcohol type: wine Alcohol Intake Frequency: Monthly or Less Hx Substance Use: No Preferred Language: Mongolian Communication Ability: Effective Visual Impairment: Limited Hearing Ability: Use of Hearing Aid Education Reviewer Required: No Beliefs That Will Affect Care: None marital status: Current Living Situation: Spouse current occupational status: retired Feels Safe at Home: Yes Childhood Exposure to Second-Hand Smoke: No caffeine: Yes during the past year weight has: remained stable Dental Care, Regularly: No Physical Activity Frequency: Daily Seatbelt Use: always Sunscreen Use: No Assistive Devices: None Review of Systems Review of Systems: A complete 10 point review of systems was reviewed with the patient with pertinent positives and negatives as per history of present illness. All else were negative. Physical Exam Physical Exam: VITAL SIGNS - Vital signs and nursing notes were reviewed. GENERAL - 82-year-old male appearing his stated age who is in no acute distress. Communicates well with provider and answers questions appropriately. HEAD - NC/AT. EYES - PERRL with EOMI bilaterally. Sclera anicteric. NOSE - Midline and without cyanosis. MOUTH/OROPHARYNX - Without perioral cyanosis. NECK - Neck with FROM. LUNGS - Chest wall symmetric without accessory muscle use, intercostals retractions, or central cyanosis. Normal vesicular breath sounds CTA B/L. No wheezes, rales, or rhonchi appreciated. CARDIAC - RRR with S1/S2. No murmur, rubs, or gallops appreciated. ABDOMEN - Abdominal contour obese without pulsations or visible masses. BS normoactive all four quadrants. No tenderness, palpable masses, hepatosplenomegaly, or ascites noted. EXTREMITIES - No clubbing or peripheral cyanosis. No pretibial edema present. +3/5 radial and dorsalis pedis pulses palpated throughout. +5/5 strength noted in UE/LE bilaterally. NEUROLOGIC - Cranial nerves II through XII grossly intact. PSYCH - A&Ox3 and cooperates fully with examiner. Pt is very pleasant and interacts well with examiner. Results & Data Results & Data Vital Signs (Past 12 Hours) Vital Signs Temp Pulse Resp BP Pulse Ox O2 Del Method O2 Flow Rate 12/21/22 11:12 36.7 C 83 19 105/66 94 Nasal Cannula 4 12/21/22 09:51 Nasal Cannula 4 12/21/22 07:42 36.8 C 79 20 122/77 94 Nasal Cannula 12/21/22 05:00 36.6 C 81 18 124/78 94 Nasal Cannula 4 12/21/22 03:30 80 16 PG Care Time/CCT Total # of Minutes Spent Total Time Spent with Patient: Total time spent is greater than 50% in coordination of care (as documented) at patient's floor/unit and/or counseling patient: Coding Level of Care Code 66001 INT INP/OBS CARE 3/75MIN Diagnoses Acute saddle pulmonary embolism I26.02 Acute cor pulmonale presence: with acute cor pulmonale Deep vein thrombosis, lower right extremity I82.401 Lymphocytosis D72.820
[2022-12-21] MEDS: ATORVASTATIN 10 MG TAB PO SCH (20:47)
[2022-12-22] MEDS: valACYclovir HCL 500 MG TABLET PO SCH ×3 (08:07→20:40)
[2022-12-22] MEDS: LISINOPRIL/HCTZ 20/25MG 1 TAB PO SCH (08:07)
[2022-12-22 08:24] LABS: Basophils # (auto) 0.07 K/uL (0-0.2); Basophils % (auto) 0.7 %; Eosinophils # (auto) 0.29 K/uL (0-0.50); Eosinophils % (auto) 2.7 %; Hematocrit (blood only) 43.1 % (42.0-52.0); Hemoglobin 15.1 g/dl (14.0-18.0); Immature Granulocytes # (auto) 0.04 K/uL (0.01-0.20); Immature Granulocytes % (auto) 0.4 %; Lymphocytes # (auto) 3.47 K/uL (1.2-3.4); Lymphocytes % (auto) 32.6 %; Mean Corpuscular Hemoglobin 30.9 pg (25.0-34.0); Mean Corpuscular Volume 88.1 fL (80.0-100.0); Mean Platelet Volume 9.9 fL (9.4-12.4); Monocytes # (auto) 0.91 K/uL (0.11-0.59); Monocytes % (auto) 8.5 %; Neutrophils # (auto) 5.87 K/uL (1.40-6.50); Neutrophils % (auto) 55.1 %; Platelet Count 251 K/uL (130-400); RDW Coefficient of Variation 13.4 % (11.5-14.5); RDW Standard Deviation 43.6 fL (36.4-46.3); Red Blood Count 4.89 M/uL (4.70-6.10); White Blood Count 10.65 K/ul (4.8-10.8)
[2022-12-22 08:46] LABS: Albumin Globulin Ratio 1.3 (0.9-2); Albumin Level 3.4 gm/dl (3.4-5.0); BUN Creatinine Ratio 28.8 (10-20); Bilirubin,Total 1.1 mg/dl (0.2-1.0); Calcium 8.2 mg/dl (8.5-10.1); Creatinine Clr Calc Pharmacy 93.9 ml/min; Est GFR (African American) 97.8 ml/min; Est GFR (Non-African American) 84.4 ml/min; Globulin 2.7 gm/dl (2.5-4.0); Magnesium 2.2 mg/dl (1.7-2.4); Potassium 3.1 mmol/L (3.5-5.1); Total Protein 6.1 gm/dl (6.0-8.3)
[2022-12-22 09:05] LABS: INR 1.1 (0.9-1.1); Partial Thromboplastin Ratio 2.5; Prothrombin Time 11.2 Seconds (9.0-12.0)
[2022-12-22 09:11] LABS: Partial Thromboplastin Time 66.3 Seconds (21.0-31.0)
[2022-12-22] MEDS ORDERED: POTASSIUM CHLORIDE CRTAB 20 MEQ TABCR PO STA (09:58)
[2022-12-22] MEDS: POTASSIUM CHLORIDE / WTR 10 MEQ/100 ML PLCT IV SCH ×4 (10:27→13:25)
--- NOTE | 2022-12-22 12:02 | Hospitalist Progress Note ---
Date of Service December 22, 2022 Assessment & Plan (1) Acute saddle pulmonary embolism: Plan: Acute saddle/extensive bilateral PE secondary to right lower extremity DVT Likely secondary to sedentary lifestyle Patient has been quite sedentary since his last COVID infection 5 months ago Currently on IV heparin drip. will continue for a total of 3 days at least given the extent of clot burden. Will likely switch to p.o. Eliquis tomorrow. Orthostatic vital signs ordered for today Will consult PT/OT tomorrow if orthostatic vital signs are stable Vital signs fairly stable although requiring oxygen per nasal cannula. Not tachycardic anymore. Requiring 3 L of oxygen today. 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 Will need outpatient heme-onc referral for hypercoagulable work-up in future (2) Bilateral pulmonary embolism: Plan: Please see above (3) Deep vein thrombosis, lower right extremity: Plan: Likely cause of the PE Management same as PE Please see above (4) Shingles: Plan: Herpes zoster in the right chest wall and right upper back On Valtrex 1 g 3 times daily Continue contact precautions (5) Gout: Plan: Not active at this time (6) Hypercholesterolemia: Plan: Continue statin (7) Hypertension: Plan: Continue lisinopril (8) Lymphocytosis: Plan: * Workup had initiated with recent outpatient visit with Flow Cytometry Analysis performed on 11/30/2022. * Flow cytometry report:"Flow detects an increase in T-cell large granular lymphocytes, which can be seen in some reactive conditions. However a T-cell lymphoproliferative disorder (E.G.T-cell large granular lymphocytic leukemia) cannot be entirely excluded by flow cytometry alone. 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 Hematology/oncology consultation is recommended." * Patient may benefit from Heme/Onc referral moving forward, who might also be able to weigh in on anticoagulation moving forward. Particularly if this does represent a lymphocytic process that certainly might make the patient more coagulopathic. Admission and Anticipated Discharge Date Admission Date: December 20, 2022 Subjective Patient feels well. Denies chest pain. Denies feeling dizzy. Gets short of breath on exertion. Review of Systems Review of Systems: All systems reviewed & are unremarkable except as noted in Subjective Physical Exam Physical Exam: General: Awake, conversant Heart: S1, S2/regular rate and rhythm, no murmur rubs or gallops Lungs: Clear to auscultation bilaterally. Normal effort. Rash noted in right upper back and right hemithorax. Abdomen: Soft/nontender/nondistended. No hepatosplenomegaly Extremities: No clubbing/cyanosis. No edema Behavior: Appropriate, cooperative Results & Data Results & Data Vital Signs (Past 12 Hours) Vital Signs Temp Pulse Resp BP BP Pulse Ox O2 Del Method 12/22/22 11:47 36.6 C 74 18 130/80 94 Nasal Cannula 12/22/22 10:45 84 124/60 12/22/22 10:46 84 121/76 12/22/22 10:45 76 133/79 12/22/22 07:29 36.9 C 69 18 135/78 97 Nasal Cannula 12/22/22 03:15 36.6 C 66 19 90/54 L 96 Nasal Cannula O2 Flow Rate 12/22/22 11:47 12/22/22 10:45 12/22/22 10:46 12/22/22 10:45 12/22/22 07:29 4 12/22/22 03:15 Laboratory Results Abnormal lab results 12/22/22 12/22/22 12/22/22 Range/Units 07:53 07:53 07:53 Lymph # (Auto) 3.47 H (1.2-3.4) K/uL [place] # (Auto) 0.91 H (0.11-0.59) K/uL APTT 66.3 H* (21.0-31.0) Seconds Potassium 3.1 L (3.5-5.1) mmol/L BUN/Creatinine Ratio 28.8 H (10-20) Glucose 117 H (70-99(Fasting)) mg/dl Calcium 8.2 L (8.5-10.1) mg/dl Total Bilirubin 1.1 H (0.2-1.0) mg/dl PG Care Time/CCT Total # of Minutes Spent Total Time Spent: 35 Total Time Spent with Patient: I spent 35 minutes in the care of this patient. The time was spent in talking to the patient, nurse, care management team, reviewing the chart, formulating plan and placing the orders accordingly. Coding Level of Care Code 84286 SUB INP/OBS CARE 2/35MIN Diagnoses Acute saddle pulmonary embolism I26.02 Acute cor pulmonale presence: with acute cor pulmonale Bilateral pulmonary embolism I26.99 Deep vein thrombosis, lower right extremity I82.401 Shingles B02.9 Gout M10.9 Hypercholesterolemia E78.00 Hypertension I10 Lymphocytosis D72.820 (1) Acute saddle pulmonary embolism Acute cor pulmonale presence: with acute cor pulmonale Qualified Code(s): I26.02 - Saddle embolus of pulmonary artery with acute cor pulmonale
--- NOTE | 2022-12-22 12:52 | Pulmonology Progress Note ---
Date of Service December 22, 2022 Assessment & Plan (1) Acute saddle pulmonary embolism: Acute cor pulmonale presence: with acute cor pulmonale Qualified Code(s): I26.02 - Saddle embolus of pulmonary artery with acute cor pulmonale (2) Deep vein thrombosis, lower right extremity: (3) Lymphocytosis: Plan IMPRESSION: 82-year-old male presenting with saddle pulmonary embolism in the setting of acute dyspnea now requiring 2 L nasal cannula. Pulmonary medicine consulted for aid in ongoing management. RECOMMENDATIONS: 1. Acute saddle pulmonary embolism - * Patient able to ambulate around the room without significant shortness of breath. * Is now only requiring 2L NC. * Discussed with primary nurse. She will continue to titrate down O2 as tolerated. She reports he has been ambulating well today and overall seems improved. * As previously discussed: * This would likely be considered an unprovoked event or, if reaching, could refer to this as a provoked event in the setting of prolonged COVID-19 infection with ongoing weakness, poor mobility, and morbid obesity which are not not modifiable and would likely need to be treated the same. * Would continue with heparin drip for now while the patient is hospitalized. Can transition to DOAC when ready for discharge. * Per current guidelines, recommendations would suggest initiation of either apixaban, dabigatran, edoxaban, or rivaroxaban over Coumadin. * Given the unprovoked VTE (or provocation by persistent risk factors that are not modifiable), recommendation would be for offering extended-phase anticoagulation with a DOAC. * Patient would benefit from outpatient follow-up echo to be performed in the next 3-4 months to evaluate for any ongoing concerns for pulmonary hypertension. 2. DVT - * As above * No need for evaluation for IVC filter. 3. Lymphocytosis - * Workup had initiated with recent outpatient visit with Flow Cytometry Analysis performed on 11/30/2022. * Flow cytometry report: * "Flow detects an increase in T-cell large granular lymphocytes, which can be seen in some reactive conditions. However a T-cell lymphoproliferative disorder (E.G.T-cell large granular lymphocytic leukemia) cannot be entirely excluded by flow cytometry alone. 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 Hematology/oncology consultation is recommended." * Patient may benefit from Heme/Onc consultation moving forward, who might also be able to weigh in on anticoagulation moving forward. Particularly if this does represent a lymphocytic process that certainly might make the patient more coagulopathic. * Patient reports symptoms of generalized fatigue and poor appetite. No unintentional weight loss. No night sweats. No other beta symptoms. Thank you for allowing us to participate in the care of this patient. Pulmonary medicine will sign off at this time. Admission and Anticipated Discharge Date Admission Date: December 20, 2022 Subjective Patient was seen and evaluated at bedside. He reports that his shortness of breath has improved. He is down to 2 L nasal cannula. He reports no chest pain, palpitations, lightheadedness, or near syncope. Review of Systems Review of Systems: A complete 10 point review of systems was reviewed with the patient with pertinent positives and negatives as per history of present illness. All else were negative. Physical Exam Physical Exam: VITAL SIGNS - Vital signs and nursing notes were reviewed. GENERAL - 82-year-old male appearing his stated age who is in no acute distress. Communicates well with provider and answers questions appropriately. NOSE - Midline and without cyanosis. MOUTH/OROPHARYNX - Without perioral cyanosis. NECK - Neck with FROM. LUNGS - No wheezes, rales, or rhonchi appreciated. CARDIAC - RRR with S1/S2. No murmur, rubs, or gallops appreciated. ABDOMEN - Abdominal contour obese without pulsations or visible masses. BS normoactive all four quadrants. No tenderness, palpable masses, hepatosplenomegaly, or ascites noted. EXTREMITIES - No clubbing or peripheral cyanosis. No pretibial edema present. +3/5 radial and dorsalis pedis pulses palpated throughout. +5/5 strength noted in UE/LE bilaterally. PSYCH - A&Ox3 and cooperates fully with examiner. Pt is very pleasant and interacts well with examiner. Results & Data Results & Data Vital Signs (Past 12 Hours) Vital Signs Temp Pulse Pulse Resp BP BP Pulse Ox 12/22/22 10:08 64 12/22/22 11:47 36.6 C 74 18 130/80 94 12/22/22 10:45 84 124/60 12/22/22 10:46 84 121/76 12/22/22 10:45 76 133/79 12/22/22 07:29 36.9 C 69 18 135/78 97 12/22/22 03:15 36.6 C 66 19 90/54 L 96 O2 Del Method O2 Flow Rate 12/22/22 10:08 12/22/22 11:47 Nasal Cannula 12/22/22 10:45 12/22/22 10:46 12/22/22 10:45 12/22/22 07:29 Nasal Cannula 4 12/22/22 03:15 Nasal Cannula PG Care Time/CCT Total # of Minutes Spent Total Time Spent with Patient: Total time spent is greater than 50% in coordination of care (as documented) at patient's floor/unit and/or counseling patient: Coding Level of Care Code 77907 SUB INP/OBS CARE 2/35MIN Diagnoses Acute saddle pulmonary embolism I26.02 Acute cor pulmonale presence: with acute cor pulmonale Deep vein thrombosis, lower right extremity I82.401 Lymphocytosis D72.820
[2022-12-22] MEDS: HEPARIN SODIUM/DEXTROSE 25,000 UNITS/500 ML BAG IV SCH (13:22)
[2022-12-22] MEDS: ATORVASTATIN 10 MG TAB PO SCH (20:40)
[2022-12-23] MEDS: HEPARIN SODIUM/DEXTROSE 25,000 UNITS/500 ML BAG IV SCH (05:12)
--- NOTE | 2022-12-23 06:13 | Electrocardiogram Report ---
Test Reason : Blood Pressure : / mmHG Vent. Rate : 089 BPM Atrial Rate : 089 BPM P-R Int : 156 ms QRS Dur : 092 ms QT Int : 408 ms P-R-T Axes : 081 -43 223 degrees QTc Int : 497 ms Normal sinus rhythm Left axis deviation T wave abnormality, consider anterior ischemia Possible Inferior infarct Prolonged QT Abnormal ECG When compared with ECG of 19-DEC-2022 21:30, QT has lengthened Confirmed by Jasbir Bell ([id number]) on 12/23/2022 6:13:11 AM Referred By: REFERRED SELF Confirmed By:Jasbir Bell
[2022-12-23 07:31] LABS: Partial Thromboplastin Time 54.7 Seconds (21.0-31.0)
[2022-12-23] MEDS ORDERED: HEPARIN-STOP ORDER ONE (08:00)
[2022-12-23] MEDS: APIXABAN 5 MG TABLET PO SCH ×2 (09:11→20:08)
[2022-12-23] MEDS: LISINOPRIL/HCTZ 20/25MG 1 TAB PO SCH (09:11)
[2022-12-23] MEDS: valACYclovir HCL 500 MG TABLET PO SCH ×3 (09:11→20:09)
--- NOTE | 2022-12-23 14:50 | Hospitalist Progress Note ---
Date of Service December 23, 2022 Assessment & Plan (1) Acute saddle pulmonary embolism: Plan: Acute saddle/extensive bilateral PE secondary to right lower extremity DVT Likely secondary to sedentary lifestyle Patient has been quite sedentary since his last COVID infection 5 months ago Currently on IV heparin drip. Discontinue heparin drip and switch to p.o. Eliquis Orthostatic vital signs negative PT/OT on board Vital signs fairly stable although requiring oxygen per nasal cannula. Not tachycardic anymore. Requiring 2 L of oxygen on ambulation which is being arranged for Troponin elevated and CT chest showing signs of right heart strain Echocardiogram showed signs of RV strain as well Script Developer on board, agrees with the plan. Will need outpatient heme-onc referral for hypercoagulable work-up in future (2) Bilateral pulmonary embolism: Plan: Plan as above (3) Deep vein thrombosis, lower right extremity: Plan: Plan as above (4) Shingles: Plan: Herpes zoster in the right chest wall and right upper back On Valtrex 1 g 3 times daily Continue contact precautions (5) Gout: Plan: Not active at this time (6) Hypercholesterolemia: Plan: Continue statin (7) Hypertension: Plan: Continue lisinopril (8) Lymphocytosis: Plan: * Workup had initiated with recent outpatient visit with Flow Cytometry Analysis performed on 11/30/2022. * Flow cytometry report:"Flow detects an increase in T-cell large granular lymphocytes, which can be seen in some reactive conditions. However a T-cell lymphoproliferative disorder (E.G.T-cell large granular lymphocytic leukemia) cannot be entirely excluded by flow cytometry alone. 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 Hematology/oncology consultation is recommended." * Patient may benefit from Heme/Onc referral moving forward, who might also be able to weigh in on anticoagulation moving forward. Particularly if this does represent a lymphocytic process that certainly might make the patient more coagulopathic. Admission and Anticipated Discharge Date Admission Date: December 20, 2022 Subjective Patient feels well. Denies chest pain or shortness of breath. Review of Systems Review of Systems: All systems reviewed & are unremarkable except as noted in Subjective Physical Exam Physical Exam: General: Awake, conversant Heart: S1, S2/regular rate and rhythm, no murmur rubs or gallops Lungs: Clear to auscultation bilaterally. Normal effort. Rash noted in right upper back and right hemithorax. Abdomen: Soft/nontender/nondistended. No hepatosplenomegaly Extremities: No clubbing/cyanosis. No edema Behavior: Appropriate, cooperative Results & Data Results & Data Vital Signs (Past 12 Hours) Vital Signs Temp Pulse Pulse Pulse Pulse Pulse Resp 12/23/22 11:00 12/23/22 12:17 36.6 C 75 18 12/23/22 11:40 86 91 H 90 79 12/23/22 08:00 12/23/22 08:10 36.4 C L 79 16 12/23/22 03:22 37.0 C 65 18 Resp Resp Resp Resp BP BP Pulse Ox 12/23/22 11:00 12/23/22 12:17 125/73 90 12/23/22 11:40 20 20 20 18 12/23/22 08:00 12/23/22 08:10 131/73 93 12/23/22 03:22 118/79 95 Pulse Ox Pulse Ox Pulse Ox Pulse Ox Pulse Ox O2 Del Method O2 Flow Rate 12/23/22 11:00 80 L Room Air 12/23/22 12:17 Room Air 12/23/22 11:40 92 87 L 90 91 12/23/22 08:00 Nasal Cannula 1 12/23/22 08:10 Room Air 12/23/22 03:22 Nasal Cannula O2 Flow Rate 12/23/22 11:00 12/23/22 12:17 12/23/22 11:40 2 12/23/22 08:00 12/23/22 08:10 12/23/22 03:22 Laboratory Results Abnormal lab results 12/23/22 Range/Units 06:10 APTT 54.7 H* (21.0-31.0) Seconds PG Care Time/CCT Total # of Minutes Spent Total Time Spent with Patient: Total time spent is greater than 50% in coordination of care (as documented) at patient's floor/unit and/or counseling patient: Coding Level of Care Code 55407 SUB INP/OBS CARE 2/35MIN Diagnoses Acute saddle pulmonary embolism I26.02 Acute cor pulmonale presence: with acute cor pulmonale Bilateral pulmonary embolism I26.99 Deep vein thrombosis, lower right extremity I82.401 Shingles B02.9 Gout M10.9 Hypercholesterolemia E78.00 Hypertension I10 Lymphocytosis D72.820 (1) Acute saddle pulmonary embolism Acute cor pulmonale presence: with acute cor pulmonale Qualified Code(s): I26.02 - Saddle embolus of pulmonary artery with acute cor pulmonale
[2022-12-23] MEDS: ATORVASTATIN 10 MG TAB PO SCH (20:09)
--- NOTE | 2022-12-24 00:22 | Electrocardiogram Report ---
Test Reason : Blood Pressure : / mmHG Vent. Rate : 070 BPM Atrial Rate : 070 BPM P-R Int : 164 ms QRS Dur : 096 ms QT Int : 484 ms P-R-T Axes : 071 -35 270 degrees QTc Int : 522 ms Poor data quality, interpretation may be adversely affected Normal sinus rhythm Left axis deviation Prolonged QT Abnormal ECG When compared with ECG of 21-DEC-2022 05:34, QT has lengthened Confirmed by Jasbir Bell ([id number]) on 12/24/2022 12:22:02 AM Referred By: REFERRED SELF Confirmed By:Jasbir Bell
[2022-12-24 06:52] LABS: Basophils # (auto) 0.06 K/uL (0-0.2); Basophils % (auto) 0.6 %; Eosinophils # (auto) 0.32 K/uL (0-0.50); Eosinophils % (auto) 3.5 %; Hematocrit (blood only) 43.1 % (42.0-52.0); Immature Granulocytes # (auto) 0.04 K/uL (0.01-0.20); Immature Granulocytes % (auto) 0.4 %; Lymphocytes # (auto) 3.23 K/uL (1.2-3.4); Lymphocytes % (auto) 34.9 %; Mean Corpuscular Hemoglobin 30.9 pg (25.0-34.0); Mean Corpuscular Hgb Conc 34.8 g/dL (32.0-36.0); Mean Corpuscular Volume 88.9 fL (80.0-100.0); Mean Platelet Volume 9.7 fL (9.4-12.4); Monocytes # (auto) 0.84 K/uL (0.11-0.59); Monocytes % (auto) 9.1 %; Neutrophils # (auto) 4.76 K/uL (1.40-6.50); Neutrophils % (auto) 51.5 %; Platelet Count 293 K/uL (130-400); RDW Coefficient of Variation 13.2 % (11.5-14.5); Red Blood Count 4.85 M/uL (4.70-6.10); White Blood Count 9.25 K/ul (4.8-10.8)
[2022-12-24 07:17] LABS: Calcium 8.4 mg/dl (8.5-10.1); Potassium 3.5 mmol/L (3.5-5.1)
[2022-12-24 07:22] LABS: BUN Creatinine Ratio 19.2 (10-20); Creatinine Clr Calc Pharmacy 95.9 ml/min; Est GFR (African American) 98.8 ml/min; Est GFR (Non-African American) 85.3 ml/min
[2022-12-24 07:48] LABS: Partial Thromboplastin Ratio 1.2; Partial Thromboplastin Time 32.3 Seconds (21.0-31.0)
[2022-12-24] MEDS: valACYclovir HCL 500 MG TABLET PO SCH (08:28)
[2022-12-24] MEDS: APIXABAN 5 MG TABLET PO SCH (08:29)
[2022-12-24] MEDS: LISINOPRIL/HCTZ 20/25MG 1 TAB PO SCH (08:29)
--- NOTE | 2022-12-24 10:39 | Discharge Summary ---
Date of Service December 24, 2022 Admission HPI Per Admitting Provider The patient is a 82-year-old male with a past medical history including hyperlipidemia, hypertension, and gout flares. He reports that he had contracted COVID-19 infection back in July, and had significant persistent symptoms of fatigue and mild shortness of breath after that time. He reports over the past several days he had developed an acute worsening of shortness of breath and developed generalized chest pain worse with breathing. At the same time that his breathing worsened last week, he developed a painful rash over his right hemithorax. He was treating this at home by laying around, however, his family encouraged him strongly to come to the ED for assessment, which she did today. CT angiography of chest showed an acute saddle pulmonary embolus, and significant bilateral clot burden involving lobar, segmental and subsegmental areas, along with significant right ventricular strain. Significant laboratories: Troponin 291.7, total bilirubin 1.2, BNP 156, WBC 10.05, hemoglobin 16.9, hematocrit 40.3, glucose 138 Admission Exam Per Admitting Provider The patient is awake, alert and oriented 3, well developed and well nourished, normocephalic and atraumatic, lying in bed and in no acute distress. HEENT--PERRL, EOMI, mucous membranes and oropharynx dry. Neck--supple. No JVD. No bruits. Thyroid normal, trachea midline, no adenopathy. Heart--normal S1 and S2. No murmurs, rubs or gallops. Lungs--decreased breath sounds throughout. Mild respiratory distress, no accessory muscle use. Abdomen--normal bowel sounds and soft. Nontender. Nondistended, no hernias or masses, no organomegaly. Extremities--no cyanosis or clubbing. 1+ bilateral pretibial edema. Dermatologic--painful dermatomal vesicular rash over right hemithorax from mid axilla line toward sternum Neurologic--cranial nerves II through XII grossly intact. Rheumatologic--limited exam Psychiatric--normal affect. Principal Diagnosis Acute saddle and bilateral PE, right lower extremity DVT, shingles Discharge Exam General: Awake, conversant Heart: S1, S2/regular rate and rhythm, no murmur rubs or gallops Lungs: Clear to auscultation bilaterally. Normal effort. Rash noted in right upper back and right hemithorax, crusting. Abdomen: Soft/nontender/nondistended. No hepatosplenomegaly Extremities: No clubbing/cyanosis. No edema Behavior: Appropriate, cooperative Discharge Data Allergies Allergy/AdvReac Type Severity Reaction Status Date / Time aspirin Allergy Severe HIVES, Verified 12/19/22 23:53 SWELLING IN FACE pneumococcal 7-valent Allergy Unknown Unknown Verified 12/19/22 23:53 conjugate to [From Prevnar] tetanus and diphtheria Allergy Unknown Unknown Verified 12/19/22 23:53 toxoids [From TDVAX] Consultations 12/19/22 23:40 ED Decision to Admit Stat 12/21/22 11:17 Consult Pulmonology Routine Ordered Studies 12/19/22 21:30 CT angio chest PE protocol Stat 12/20/22 04:50 US venous doppler [facility] Urgent Hospital Course (1) Acute saddle pulmonary embolism: Acute saddle/extensive bilateral PE secondary to right lower extremity DVT Likely secondary to sedentary lifestyle Patient has been quite sedentary since his last COVID infection 5 months ago Currently on IV heparin drip. Discontinue heparin drip and switch to p.o. Eliquis Orthostatic vital signs negative PT/OT on board Vital signs fairly stable although requiring oxygen per nasal cannula. Not tachycardic anymore. Requiring 2 L of oxygen on ambulation which is being arranged for Troponin elevated and CT chest showing signs of right heart strain Echocardiogram showed signs of RV strain as well Certified Ophthalmic Assistant on board, agrees with the plan. Will need outpatient heme-onc referral for hypercoagulable work-up in future (2) Bilateral pulmonary embolism: Plan as above (3) Deep vein thrombosis, lower right extremity: Plan as above (4) Shingles: Herpes zoster in the right chest wall and right upper back On Valtrex 1 g 3 times daily to complete a 7-day course (5) Gout: Not active at this time (6) Hypercholesterolemia: Continue statin (7) Hypertension: Continue lisinopril (8) Lymphocytosis: * Workup had initiated with recent outpatient visit with Flow Cytometry Analysis performed on 11/30/2022. * Flow cytometry report:"Flow detects an increase in T-cell large granular lymphocytes, which can be seen in some reactive conditions. However a T-cell lymphoproliferative disorder (E.G.T-cell large granular lymphocytic leukemia) cannot be entirely excluded by flow cytometry alone. 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 Hematology/oncology consultation is recommended." * Patient may benefit from Heme/Onc referral moving forward, who might also be able to weigh in on anticoagulation moving forward. Particularly if this does represent a lymphocytic process that certainly might make the patient more coagulopathic. Total Time Total Time Spent Total Time Spent (In Minutes): 35 Discharge Plan Discharge Items Patient Disposition: Home - Self-Care Reason For Visit: SADDLE PE W/ RIGHTT HEART STRAIN, NSTEMI Discharge Diagnosis: Acute saddle and bilateral PE, acute DVT Activity: Resume your previous activity Non-emergency contact: Primary Care Provider Call non-emergency contact if: your symptoms worsen Follow-up/Referrals: Eden Boo CRNP [Primary Care Provider] - Diet: Heart Healthy Addtl Attending Provider Instructions: Follow-up with PCP in 1 week Follow-up with hematology in 1 month Pending Studies at Discharge: No Stand-Alone Forms: My [facility] [employer] Medications and DC Order Prescriptions: New Eliquis 5 mg Tablet 10 mg PO BID Qty: 28 0RF Eliquis 5 mg tablet 5 mg PO BID Qty: 60 0RF Rx Instructions: Start on 12/30 after first 7 days of 10mg bid. valacyclovir 500 mg Tablet 1,000 mg PO TID Qty: 2 0RF valacyclovir [Valtrex] 1 gram tablet 1,000 mg PO Q8H Qty: 8 0RF Continued lisinopril-hydrochlorothiazide 20-25 mg tablet 1 tab PO QAM Qty: 90 3RF atorvastatin [Lipitor] 10 mg tablet 10 mg PO HS Qty: 90 3RF indomethacin 50 mg capsule 50 mg PO TID PRN (Reason: gout flare up ) Qty: 30 1RF Discharge Orders: Discharge Order (Routine); Ordered 12/24/22 Ordered By: Kiko Baez/Other Patient Handouts: Shingles (Herpes Zoster), DVT Tx, Venous Thromboembolism Admission Data Admit Date/Time: 12/20/22 01:18 Attending Provider: Kiko Hollins Admit Provider: Robert Chavarria Primary Care Provider: Eden Boo Other Providers: Robert Chavarria ; Atif Robins Other Interventions: Discharge Summary Assessment (RN) Last Done: 12/24/22 10:44 Coding Level of Care Code 30529 INP/OBS DISCH >30 MIN Diagnoses Acute saddle pulmonary embolism I26.02 Acute cor pulmonale presence: with acute cor pulmonale Bilateral pulmonary embolism I26.99 Deep vein thrombosis, lower right extremity I82.401 Shingles B02.9 Gout M10.9 Hypercholesterolemia E78.00 Hypertension I10 Lymphocytosis D72.820 Time Spent (min) 35
== END 2022-12-24 12:10 | disposition home or self-care (01) | DRG 175 ==
LOC: ED 20:50 → SUATTDRO 12-20 01:18 → 2E 12-20 01:18

== ENCOUNTER 2024-06-06 20:52 | Observation (INO) ==
--- NOTE | 2024-06-06 21:28 | Emergency Department Note ---
Impression & Plan Precordial chest pain, History of pulmonary embolism, Exertional chest pain, Tachycardia, Leukocytosis, Hypokalemia ED Provider Note NAME: OSBALDO BUSBY AGE: 83 SEX: M : 1940 ARRIVES VIA: Ambulance INFORMANT: [Patient][family] ED PROVIDER(S): [Umang John MD] CHIEF COMPLAINT: Chest pain HISTORY OF PRESENT ILLNESS: The patient is an 83-year-old male whose had a few weeks of right upper chest pain that seems to come and go. He feels that exertion makes things worse. Tonight, he had more persistent symptoms and his heart rate was elevated at around 130. The patient has a history of PE, he is on Eliquis. He states that he has no history of coronary disease or dysrhythmia. The patient's episodes last for 30 seconds or so. He gets a tightness to the right chest. He maybe is slightly short of breath. He thinks taking a deep breath makes things better. He states that he notices these symptoms primarily with exertion. There has been no cough or congestion. No real trauma to the chest. PMHx/PSHx/Social Hx: See Below PHYSICAL EXAM: GENERAL: Patient is in no acute distress. HEENT: No acute trauma, normocephalic atraumatic, mucous membranes moist, no nasal congestion. NECK: No stridor, no adenopathy, no meningismus, trachea is midline. LUNGS: Clear to auscultation bilaterally, no wheeze, no rhonchi, breath sounds equal. HEART: Mildly tachycardic with a regular rhythm, no obvious murmur. Heart tones are quite distant. ABDOMEN: Soft, nontender, no peritonitis. EXTREMITIES: No cyanosis, full range of motion of all the joints without pain or difficulty. NEUROLOGIC: Oriented x 3, no acute motor or sensory deficits, no focal weakness. SKIN: No jaundice, no diaphoresis. DIFFERENTIAL DIAGNOSIS: PE, SVT, A-fib, a flutter, CA, angina, among others. EMERGENCY DEPARTMENT PROCEDURES: MEDICAL DECISION MAKING: There is a mild leukocytosis, this could be consistent with infection or just his presentation/pain. There was a normal hemoglobin and platelet count. No coagulopathy. Potassium was slightly low at 3.4. No renal failure. No concerning liver enzyme elevation. No evidence for pancreatitis. TSH was slightly high however, the T4 was normal. ECG showed a sinus tachycardia, no acute ST elevation. Chest film showed some subtle chronic change, no mediastinal widening, pneumonia or CHF. Chest CT did not show PE. He does have an aneurysm to the ascending aorta which has been documented before. No findings suggesting dissection. Cardiac enzyme testing x 2 is not suggestive of acute cardiac injury. Patient was given IV potassium. He did not require anything for pain. His heart rate seemed to decrease spontaneously. The patient presents with some exertional chest pain and dyspnea. Cardiac workup here in the ED is reassuring however, I do not think a cardiac etiology for his discomfort has been completely ruled out. Given his age, given his complaints, I do think a hospital stay for further cardiac workup/monitoring would be warranted. I did speak with the patient and case management. The on-call hospitalist was consulted. Prior/Outside records/notes reviewed: Today's EMS notes describing his presentation and transport to this hospital. ECG per my interpretation: Indication was chest pain. The ECG shows a sinus tachycardia with a rate of 108. There is some nonspecific ST change. There is no acute ST elevation, no PVCs. The QTc is 447. Continuous Cardiac Monitoring per my interpretation: An order was placed for continuous cardiac monitoring. The monitor shows a rate of 112 with sinus tachycardia. Imaging/x-ray results per my interpretation: Chest x-ray does not show mediastinal widening, pneumonia or pneumothorax. Some chronic change was noted. Chronic Medical/Social conditions affecting care: Advanced age, history of PE on anticoagulation. Care/Management discussed with: Case management, the on-call hospitalist. Level of care consideration(s): After review of the information above and other included data: --I believe the patient requires escalation of care to admission DISPOSITION: Admission Past Med/Surg History Problem List (Updated 06/07/24 @ 00:55 by Umang John MD) Hypokalemia (Acute) Leukocytosis (Acute) Tachycardia (Acute) Exertional chest pain (Acute) History of pulmonary embolism (Acute) Precordial chest pain (Acute) Gout Hypercholesterolemia (Chronic) History of pulmonary embolism Postherpetic neuralgia Lymphocytosis Obesity (Acute) Male erectile disorder of organic origin (Acute) Impaired fasting glucose (Acute) Medical History Hx of gout Cataract Hypertension Surgical History History of cataract surgery RT History of tooth extraction Family History Denies family history of Ovarian cancer Prostate cancer Myocardial infarction Breast cancer Colorectal cancer Social History Smoking Status: Never smoker Tobacco Type: Smokeless Tobacco (Dip or Chew) Second Hand Exposure: No; Do You Dip or Chew Tobacco: No; Hx Alcohol Use: Yes Alcohol type: wine Alcohol Intake Frequency: Monthly or Less Hx Substance Use: No Preferred Language: Turkmen Communication Ability: Effective Visual Impairment: Limited Hearing Ability: Use of Hearing Aid Budget Report Clerk Required: No Beliefs That Will Affect Care: None marital status: Current Living Situation: Spouse current occupational status: retired Feels Safe at Home: Yes Childhood Exposure to Second-Hand Smoke: No Diet: regular caffeine: Yes during the past year weight has: remained stable Dental Care, Regularly: No Physical Activity Frequency: Daily Seatbelt Use: always Sunscreen Use: No Assistive Devices: None Allergies Allergies Allergy/AdvReac Type Severity Reaction Status Date / Time aspirin Allergy Severe HIVES, Verified 06/06/24 21:48 SWELLING IN FACE pneumococcal 7-valent Allergy Unknown Unknown Verified 06/06/24 21:48 conjugate to [From Prevnar] tetanus and diphtheria Allergy Unknown Unknown Verified 06/06/24 21:48 toxoids [From TDVAX] Home Meds Previous Rx's Medication Instructions Recorded lisinopril 20 1 tab PO QAM #90 tabs 11/10/23 mg-hydrochlorothiazide 25 mg tablet atorvastatin 10 mg tablet (Lipitor) 10 mg PO HS #90 tabs 11/15/23 apixaban 2.5 mg tablet 2.5 mg PO BID #90 tabs 02/12/24 Results & Data (ED) Vital Signs Vital Signs - 24 hr 06/06/24 20:36 06/06/24 20:36 06/06/24 20:54 Pulse Rate 111 H Pulse Rate [Right Finger] 89 Respiratory Rate 12 Blood Pressure [Right Arm] 131/77 Blood Pressure Mean [Right Arm] 95 Pulse Oximetry 95 96 Oxygen Delivery Method Room Air Room Air 06/06/24 21:18 Pulse Rate 84 Pulse Rate [Right Finger] Respiratory Rate 12 Blood Pressure [Right Arm] Blood Pressure Mean [Right Arm] Pulse Oximetry 96 Oxygen Delivery Method Room Air Home Medications Current Medication List: was personally reviewed by me Laboratory Data Attestation: I reviewed the patient's lab results. 06/06/24 20:57 06/06/24 20:57 Lab Results 06/06/24 06/07/24 Range/Units 20:57 00:22 WBC 12.64 H (4.8-10.8) K/ul RBC 5.62 (4.70-6.10) M/uL Hgb 16.5 (14.0-18.0) g/dl Hct 49.1 (42.0-52.0) % MCV 87.4 (80.0-100.0) fL MCH 29.4 (25.0-34.0) pg MCHC 33.6 (32.0-36.0) g/dL RDW Std Deviation 44.2 (36.4-46.3) fL RDW Coeff of Manuel 14.0 (11.5-14.5) % Plt Count 363 (130-400) K/uL MPV 9.8 (9.4-12.4) fL Neutrophils % (Manual) 29 % Lymphocytes % (Manual) 19 % Monocytes % (Manual) 3 % Eosinophils % (Manual) 1 % Neutrophils # (Manual) 3.67 (1.40-6.50) K/uL Total Absolute Neuts 3.67 (1.4-6.5) K/uL Lymphocytes # (Manual) 2.40 (1.2-3.4) K/uL Total Abs Lymphocytes 8.47 H (1.2-3.4) K/uL Monocytes # (Manual) 0.38 (0.11-0.59) K/uL Eosinophils # (Manual) 0.13 (0-0.50) K/uL Large Granular Lymphs 48 % # Lrg Granular Lymphs 6.07 K/uL RBC Morphology Unremarkable PT 10.5 (9.0-12.0) Seconds INR 1.0 (0.9-1.1) APTT 27 (21-31) Seconds PTT Ratio 1.0 Sodium 136 (136-145) mmol/L Potassium 3.4 L (3.5-5.1) mmol/L Chloride 104 (98-107) mmol/L Carbon Dioxide 21 (21-32) mmol/L Anion Gap 11 (3-11) BUN 17 (6-23) mg/dl Creatinine 0.80 (0.6-1.4) mg/dl Est Cr Clr Drug Dosing Not Reportable Est GFR ( Amer) 97.1 ml/min Est GFR (Non-Af Amer) 83.8 ml/min BUN/Creatinine Ratio 21.3 H (10-20) Glucose 126 H (70-99(Fasting)) mg/dl Calcium 9.3 (8.6-10.3) mg/dl Magnesium 2.1 (1.7-2.4) mg/dl Total Bilirubin 0.9 (0.2-1.0) mg/dl AST 14 (13-39) U/L ALT 12 (7-52) U/L Alkaline Phosphatase 56 (34-104) U/L Troponin I High Sens 5.4 6.7 (0-20) pg/ml Total Protein 7.3 (6.0-8.3) gm/dl Albumin 4.2 (3.4-5.0) gm/dl Globulin 3.1 (2.5-4.0) gm/dl Albumin/Globulin Ratio 1.4 (0.9-2) Lipase 35 (11-82) U/L TSH 5.044 H (0.300-4.500) uIu/ml Free T4 1.17 (0.61-1.60) ng/dl Administered Medications Discontinued Medications Potassium Chloride (K Teodoro / Wtr) 10 meq in 100 mls @ 100 mls/hr IV ONE ONE Stop: 06/06/24 22:56 Last Admin: 06/06/24 23:48 Dose: 100 mls/hr Documented By: MOMO Ioversol (Optiray 320 125ml) 119 ml IV ONCE ONE Stop: 06/06/24 22:49 Last Admin: 06/06/24 22:48 Dose: 119 ml Documented By: APRIL Imaging Data Radiologist's Impression: Chest CTA 06/06/24 21:19 Exam(s): CTA CHEST IV Amt: 119ml optiray 320 EXAM: CT Angiography Chest With Intravenous Contrast CLINICAL HISTORY: Reason for exam: Chest Pain, eval for PE. TECHNIQUE: Axial computed tomographic angiography images of the chest with intravenous contrast. CTDI is 28.14 mGy and DLP is 922.88 mGy-cm. Automated exposure control was utilized for the study. A dose lowering technique was utilized adhering to the principles of ALARA. MIP reconstructed images were created and reviewed. COMPARISON: 12/19/2022. FINDINGS: Artifact degrades image quality limiting the exam. Pulmonary arteries: No pulmonary embolism is seen. Aorta: There are atherosclerotic changes. There is a 4.2 cm aneurysm noted of the ascending aorta.. Lungs: There are emphysematous changes noted. There is scarring noted left lower lobe. No mass. No consolidation. Pleural space: Unremarkable. No significant effusion. No pneumothorax. Heart: Heart is not enlarged but contains coronary artery calcifications.. Bones/joints: There are marked degenerative changes in the spine.. Soft tissues: Unremarkable. Lymph nodes: . No enlarged lymph nodes. IMPRESSION: Limited exam. No pulmonary embolism is seen. There are emphysematous changes noted. Again noted is a 4.2 cm aneurysm of the ascending aorta. Electronically signed by: Deniz Segura MD 06/07/24 00:40 AM Discharge Plan Visit Data Chief Complaint: Cardiac Assessment Stated Complaint: SOB, CHEST TIGHTNESS X1 MONTH ED Provider: Umang John Discharge Problem: Precordial chest pain, History of pulmonary embolism, Exertional chest pain, Tachycardia, Leukocytosis, Hypokalemia Patient Disposition: Admitted As Inpatient Condition: Fair Forms Stand Alone Forms: [facility] My Dentist Prescriptions Prescriptions: No Action lisinopril-hydrochlorothiazide 20-25 mg tablet 1 tab PO QAM Qty: 90 3RF atorvastatin [Lipitor] 10 mg tablet 10 mg PO HS Qty: 90 3RF Eliquis 2.5 mg tablet 2.5 mg PO BID Qty: 90 3RF Referrals Referrals: Eden Boo CRNP [Primary Care Provider] - Discharge Problem: Leukocytosis Qualifiers: Leukocytosis type: unspecified Qualified Code(s): D72.829 - Elevated white blood cell count, unspecified
[2024-06-06 21:52] LABS: Hematocrit (blood only) 49.1 % (42.0-52.0); Hemoglobin 16.5 g/dl (14.0-18.0); Mean Corpuscular Hemoglobin 29.4 pg (25.0-34.0); Mean Corpuscular Hgb Conc 33.6 g/dL (32.0-36.0); Mean Corpuscular Volume 87.4 fL (80.0-100.0); Mean Platelet Volume 9.8 fL (9.4-12.4); Platelet Count 363 K/uL (130-400); RDW Standard Deviation 44.2 fL (36.4-46.3); Red Blood Count 5.62 M/uL (4.70-6.10); White Blood Count 12.64 K/ul (4.8-10.8)
[2024-06-06 21:53] LABS: Alanine Aminotransferase 12 U/L (7-52); Albumin Globulin Ratio 1.4 (0.9-2); Albumin Level 4.2 gm/dl (3.4-5.0); Alkaline Phosphatase 56 U/L (34-104); Anion Gap 11 (3-11); Aspartate Aminotransferase 14 U/L (13-39); BUN Creatinine Ratio 21.3 (10-20); Bilirubin,Total 0.9 mg/dl (0.2-1.0); Blood Urea Nitrogen 17 mg/dl (6-23); Calcium 9.3 mg/dl (8.6-10.3); Carbon Dioxide 21 mmol/L (21-32); Chloride 104 mmol/L (98-107); Est GFR (African American) 97.1 ml/min; Est GFR (Non-African American) 83.8 ml/min; Globulin 3.1 gm/dl (2.5-4.0); Glucose 126 mg/dl (70-99(Fasting)); Lipase 35 U/L (11-82); Magnesium 2.1 mg/dl (1.7-2.4); Potassium 3.4 mmol/L (3.5-5.1); Sodium 136 mmol/L (136-145); Total Protein 7.3 gm/dl (6.0-8.3)
[2024-06-06 21:59] LABS: Troponin I High Sensitivity 5.4 pg/ml (0-20)
[2024-06-06 22:06] LABS: Partial Thromboplastin Time 27 Seconds (21-31); Prothrombin Time 10.5 Seconds (9.0-12.0)
[2024-06-06 22:08] LABS: Thyroid Stimulating Hormone 5.044 uIu/ml (0.300-4.500)
[2024-06-06 22:38] LABS: ALC (manual) 8.47 K/uL (1.2-3.4); ANC (manual) 3.67 K/uL (1.4-6.5); Eosinophils # (manual) 0.13 K/uL (0-0.50); Eosinophils % (manual) 1 %; Large Granular Lymph # (manua 6.07 K/uL; Large Granular Lymph % (manual) 48 %; Lymphocytes % (manual) 19 %; Monocytes # (manual) 0.38 K/uL (0.11-0.59); Monocytes % (manual) 3 %; Neutrophils # (manual) 3.67 K/uL (1.40-6.50); Neutrophils % (manual) 29 %; RBC Morphology Unremarkable
[2024-06-06 22:44] LABS: T4 Free Thyroxine 1.17 ng/dl (0.61-1.60)
[2024-06-06] MEDS: OPTIRAY 320 125ml IV ONE (22:48)
[2024-06-06] MEDS: POTASSIUM CHLORIDE / WTR 10 MEQ/100 ML PLCT IV ONE (23:48)
--- NOTE | 2024-06-07 00:41 | CT Scan Report ---
Exam(s): CTA CHEST IV Amt: 119ml optiray 320 EXAM: CT Angiography Chest With Intravenous Contrast CLINICAL HISTORY: Reason for exam: Chest Pain, eval for PE. TECHNIQUE: Axial computed tomographic angiography images of the chest with intravenous contrast. CTDI is 28.14 mGy and DLP is 922.88 mGy-cm. Automated exposure control was utilized for the study. A dose lowering technique was utilized adhering to the principles of ALARA. MIP reconstructed images were created and reviewed. COMPARISON: 12/19/2022. FINDINGS: Artifact degrades image quality limiting the exam. Pulmonary arteries: No pulmonary embolism is seen. Aorta: There are atherosclerotic changes. There is a 4.2 cm aneurysm noted of the ascending aorta.. Lungs: There are emphysematous changes noted. There is scarring noted left lower lobe. No mass. No consolidation. Pleural space: Unremarkable. No significant effusion. No pneumothorax. Heart: Heart is not enlarged but contains coronary artery calcifications.. Bones/joints: There are marked degenerative changes in the spine.. Soft tissues: Unremarkable. Lymph nodes: . No enlarged lymph nodes. IMPRESSION: Limited exam. No pulmonary embolism is seen. There are emphysematous changes noted. Again noted is a 4.2 cm aneurysm of the ascending aorta. Electronically signed by: Deniz Segura MD 06/07/24 00:40 AM
--- NOTE | 2024-06-07 02:08 | History & Physical Report ---
Date of Service June 07, 2024 Assessment & Plan (1) Exertional chest pain: (2) Tachycardia: (3) Hypokalemia: (4) Hypercholesterolemia: (5) History of pulmonary embolism: (6) Postherpetic neuralgia: (7) Lymphocytosis: Plan Exertional chest pain- The patient will be admitted to telemetry for serial cardiac enzymes, serial EKG's, cardiac rhythm monitoring and a 2-D echocardiogram with Dopplers. CTA PE protocol negative for PE Will need stress echocardiogram prior to discharge History of PE- Continue apixaban Hypokalemia/hypertension- Potassium 3.4, magnesium 2.1 Received potassium chloride 10 mill equivalent IV x 1 Add Klor-Con 40 mill equivalents p.o. Repeat laboratories in a.m. Hold HCTZ Continue lisinopril Lymphocytosis- Absolute lymphocyte count has been followed by hematology Mild increase since last labs Outpatient appointment to establish with Dr. Choudhury on 06/07, having followed with Dr. Peraza previously Consult Dr. Choudhury Ascending aortic aneurysm- Reported stable at 4.2 cm, when he followed serially as outpatient History of Present Illness Chief Complaint: The patient presents to the emergency department complaining of right upper chest pain, that occurred while he was standing at the stove prior to arrival. He also notes that his heart rate increased to 130 for a few minutes when this discomfort was there. Primary Care Provider: ANABELLE Shirley The patient is an 83-year-old male with a past medical history including history of PE on Eliquis, gout, hypercholesterolemia, postherpetic neuralgia, lymphocytosis, obesity, impaired fasting glucose. He presents to the emergency department after developing the acute onset of right upper chest area pain, while doing exertional activity of standing as though prior to arrival. He denies any right lower extremity weakness. He denies any associated lightheadedness or dizziness. He does note that his heart rate increased to about 130 for few minutes duration, and then normalized with rest. His main concerns related to the chest pain are that of his history of pulmonary embolism, and he reports that he has had exertional issues with postherpetic neuralgia in the past Allergies Allergy/AdvReac Type Severity Reaction Status Date / Time aspirin Allergy Severe HIVES, Verified 06/06/24 21:48 SWELLING IN FACE pneumococcal 7-valent Allergy Unknown Unknown Verified 06/06/24 21:48 conjugate to [From Prevnar] tetanus and diphtheria Allergy Unknown Unknown Verified 06/06/24 21:48 toxoids [From TDVAX] Home Medications Medication Instructions Recorded Confirmed Type lisinopril 20 1 tab PO QAM #90 tabs 11/10/23 06/06/24 Rx mg-hydrochlorothiazide 25 mg tablet atorvastatin 10 mg tablet (Lipitor) 10 mg PO HS #90 tabs 11/15/23 06/06/24 Rx apixaban 2.5 mg tablet 2.5 mg PO BID #90 tabs 02/12/24 06/06/24 Rx Past Med/Surg History Problem List (Updated 06/07/24 @ 00:55 by Umang John MD) Hypokalemia (Acute) Leukocytosis (Acute) Tachycardia (Acute) Exertional chest pain (Acute) History of pulmonary embolism (Acute) Precordial chest pain (Acute) Gout Hypercholesterolemia (Chronic) History of pulmonary embolism Postherpetic neuralgia Lymphocytosis Obesity (Acute) Male erectile disorder of organic origin (Acute) Impaired fasting glucose (Acute) Medical History Hx of gout Cataract Hypertension Surgical History History of cataract surgery RT History of tooth extraction Family History Denies family history of Ovarian cancer Prostate cancer Myocardial infarction Breast cancer Colorectal cancer Social History Smoking Status: Never smoker Tobacco Type: Smokeless Tobacco (Dip or Chew) Second Hand Exposure: No; Do You Dip or Chew Tobacco: No; Hx Alcohol Use: Yes Alcohol type: wine Alcohol Intake Frequency: Monthly or Less Hx Substance Use: No Preferred Language: [place] Islander Communication Ability: Effective Visual Impairment: Limited Hearing Ability: Use of Hearing Aid [employer] Required: No Beliefs That Will Affect Care: None marital status: Current Living Situation: Spouse current occupational status: retired Feels Safe at Home: Yes Childhood Exposure to Second-Hand Smoke: No Diet: regular caffeine: Yes during the past year weight has: remained stable Dental Care, Regularly: No Physical Activity Frequency: Daily Seatbelt Use: always Sunscreen Use: No Assistive Devices: None Review of Systems Review of Systems: The patient denies shortness of breath, dyspnea on exertion, cough, lower extremity swelling, sore throat, fevers, chills, sweats, fatigue, nausea, vomiting, diarrhea , constipation, abdominal pain, pelvic pain, blood in urine or stool, dysuria, urinary frequency or urgency, lightheadedness, dizziness, headache, memory loss, loss of consciousness, rash, abnormal bruising or bleeding, imbalance, focal or generalized weakness, numbness or tingling in arms or legs, generalized arthralgias or myalgias, back or neck pain, or night sweats. The review of systems is otherwise negative other than for that already noted above, and at least 10 systems have been reviewed. Physical Exam Physical Exam: The patient is awake, alert and oriented 3, well developed and well nourished, normocephalic and atraumatic, lying in bed and in no acute distress. HEENT--PERRL, EOMI, mucous membranes and oropharynx dry. Neck--supple. No JVD. No bruits. Thyroid normal, trachea midline, no adenopathy. Heart--normal S1 and S2. No murmurs, rubs or gallops. Lungs--clear bilaterally, no respiratory distress, no accessory muscle use. Abdomen--normal bowel sounds and soft. Nontender. Nondistended. Obese Extremities--no cyanosis or clubbing. No edema. Dermatologic--normal skin turgor, normal color, no abnormal lymph nodes, no rash. Neurologic--cranial nerves II through XII grossly intact. Rheumatologic--normal range of motion. Psychiatric--normal affect. Results & Data Results & Data Vital Signs (Past 12 Hours) Vital Signs Pulse Pulse Resp BP Pulse Ox O2 Del Method 06/07/24 00:56 77 06/06/24 21:18 84 12 96 Room Air 06/06/24 20:54 111 H 06/06/24 20:36 89 12 131/77 96 Room Air 06/06/24 20:36 95 Room Air Laboratory Results Laboratory Results WBC 12.64 K/ul (4.8-10.8) H 06/06/24 20:57 RBC 5.62 M/uL (4.70-6.10) 06/06/24 20:57 Hgb 16.5 g/dl (14.0-18.0) 06/06/24 20:57 Hct 49.1 % (42.0-52.0) 06/06/24 20:57 MCV 87.4 fL (80.0-100.0) 06/06/24 20:57 MCH 29.4 pg (25.0-34.0) 06/06/24 20:57 MCHC 33.6 g/dL (32.0-36.0) 06/06/24 20:57 RDW Std Deviation 44.2 fL (36.4-46.3) 06/06/24 20:57 RDW Coeff of Manuel 14.0 % (11.5-14.5) 06/06/24 20:57 Plt Count 363 K/uL (130-400) 06/06/24 20:57 MPV 9.8 fL (9.4-12.4) 06/06/24 20:57 Neutrophils % (Manual) 29 % 06/06/24 20:57 Lymphocytes % (Manual) 19 % 06/06/24 20:57 Monocytes % (Manual) 3 % 06/06/24 20:57 Eosinophils % (Manual) 1 % 06/06/24 20:57 Neutrophils # (Manual) 3.67 K/uL (1.40-6.50) 06/06/24 20:57 Total Absolute Neuts 3.67 K/uL (1.4-6.5) 06/06/24 20:57 Lymphocytes # (Manual) 2.40 K/uL (1.2-3.4) 06/06/24 20:57 Total Abs Lymphocytes 8.47 K/uL (1.2-3.4) H 06/06/24 20:57 Monocytes # (Manual) 0.38 K/uL (0.11-0.59) 06/06/24 20:57 Eosinophils # (Manual) 0.13 K/uL (0-0.50) 06/06/24 20:57 Large Granular Lymphs 48 % 06/06/24 20:57 # Lrg Granular Lymphs 6.07 K/uL 06/06/24 20:57 RBC Morphology Unremarkable 06/06/24 20:57 PT 10.5 Seconds (9.0-12.0) 06/06/24 20:57 INR 1.0 (0.9-1.1) 06/06/24 20:57 APTT 27 Seconds (21-31) 06/06/24 20:57 PTT Ratio 1.0 06/06/24 20:57 Sodium 136 mmol/L (136-145) 06/06/24 20:57 Potassium 3.4 mmol/L (3.5-5.1) L 06/06/24 20:57 Chloride 104 mmol/L (98-107) 06/06/24 20:57 Carbon Dioxide 21 mmol/L (21-32) 06/06/24 20:57 Anion Gap 11 (3-11) 06/06/24 20:57 BUN 17 mg/dl (6-23) 06/06/24 20:57 Creatinine 0.80 mg/dl (0.6-1.4) 06/06/24 20:57 Est Cr Clr Drug Dosing Not Reportable 06/06/24 20:57 Est GFR ( Amer) 97.1 ml/min 06/06/24 20:57 Est GFR (Non-Af Amer) 83.8 ml/min 06/06/24 20:57 BUN/Creatinine Ratio 21.3 (10-20) H 06/06/24 20:57 Glucose 126 mg/dl (70-99(Fasting)) H 06/06/24 20:57 Calcium 9.3 mg/dl (8.6-10.3) 06/06/24 20:57 Magnesium 2.1 mg/dl (1.7-2.4) 06/06/24 20:57 Total Bilirubin 0.9 mg/dl (0.2-1.0) 06/06/24 20:57 AST 14 U/L (13-39) 06/06/24 20:57 ALT 12 U/L (7-52) 06/06/24 20:57 Alkaline Phosphatase 56 U/L (34-104) 06/06/24 20:57 Troponin I High Sens 6.7 pg/ml (0-20) 06/07/24 00:22 Total Protein 7.3 gm/dl (6.0-8.3) 06/06/24 20:57 Albumin 4.2 gm/dl (3.4-5.0) 06/06/24 20:57 Globulin 3.1 gm/dl (2.5-4.0) 06/06/24 20:57 Albumin/Globulin Ratio 1.4 (0.9-2) 06/06/24 20:57 Lipase 35 U/L (11-82) 06/06/24 20:57 TSH 5.044 uIu/ml (0.300-4.500) H 06/06/24 20:57 Free T4 1.17 ng/dl (0.61-1.60) 06/06/24 20:57 Impressions Chest CTA 06/06/24 21:19 Exam(s): CTA CHEST IV Amt: 119ml optiray 320 EXAM: CT Angiography Chest With Intravenous Contrast CLINICAL HISTORY: Reason for exam: Chest Pain, eval for PE. TECHNIQUE: Axial computed tomographic angiography images of the chest with intravenous contrast. CTDI is 28.14 mGy and DLP is 922.88 mGy-cm. Automated exposure control was utilized for the study. A dose lowering technique was utilized adhering to the principles of ALARA. MIP reconstructed images were created and reviewed. COMPARISON: 12/19/2022. FINDINGS: Artifact degrades image quality limiting the exam. Pulmonary arteries: No pulmonary embolism is seen. Aorta: There are atherosclerotic changes. There is a 4.2 cm aneurysm noted of the ascending aorta.. Lungs: There are emphysematous changes noted. There is scarring noted left lower lobe. No mass. No consolidation. Pleural space: Unremarkable. No significant effusion. No pneumothorax. Heart: Heart is not enlarged but contains coronary artery calcifications.. Bones/joints: There are marked degenerative changes in the spine.. Soft tissues: Unremarkable. Lymph nodes: . No enlarged lymph nodes. IMPRESSION: Limited exam. No pulmonary embolism is seen. There are emphysematous changes noted. Again noted is a 4.2 cm aneurysm of the ascending aorta. Electronically signed by: Deniz Segura MD 06/07/24 00:40 AM Code Status & VTE Plan Code Status Full code VTE Prophylaxis Plan VTE Prophylaxis will be ordered: Yes PG Care Time/CCT Total # of Minutes Spent Total Time Spent with Patient: Total time spent is greater than 50% in coordination of care (as documented) at patient's floor/unit and/or counseling patient: Coding Level of Care Code 63253 INT INP/OBS CARE 3/75MIN Diagnoses Exertional chest pain R07.9 Tachycardia R00.0 Hypokalemia E87.6 Hypercholesterolemia E78.00 History of pulmonary embolism Z86.711 Postherpetic neuralgia B02.29 Lymphocytosis D72.820
[2024-06-07] MEDS: APIXABAN 2.5 MG TAB PO STA (02:50)
[2024-06-07] MEDS: POTASSIUM CHLORIDE CRTAB 20 MEQ TABCR PO STA (02:50)
[2024-06-07] MEDS ORDERED: ACETAMINOPHEN 325 MG TAB PO PRN (04:24)
--- NOTE | 2024-06-07 07:12 | Hospitalist Progress Note ---
Date of Service June 07, 2024 Assessment & Plan (1) Exertional chest pain: (2) Tachycardia: (3) Hypokalemia: (4) Hypercholesterolemia: (5) History of pulmonary embolism: (6) Postherpetic neuralgia: (7) Lymphocytosis: Plan The patient is an 83-year-old male with a past medical history including history of PE on Eliquis, gout, hypercholesterolemia, postherpetic neuralgia, lymphocytosis, obesity, impaired fasting glucose, admitted for evaluation of exertional chest pain, atypical for any cardiac origin. Exertional chest pain Atypical pain for cardiac event, however age and risk factors supports full work up Admitted for overnight Tele monitor; NSR CT-Angio PE protocol negative for PE ECG: Sinus Tachycardia with LAD, Non Sp ST-T wave changes Serial Troponin: 5.4--6---6.7 Dobutamine Stress Echo planed CBC/CMP: Benign TSH: 5.04( H) History of PE Saddle embolus in 2022 likely secondary to COVID Continue apixaban 5 mg OD PT/INR/APTT: 10.5/11/04 Hypokalemia Potassium 3.4, magnesium 2.1 Received potassium chloride 10 mill equivalent IV x 1 Add Klor-Con 40 mill equivalents p.o. Repeat lab: K: 4----<3.4 Hold HCTZ; Continue lisinopril Lymphocytosis- Absolute lymphocyte count has been followed by hematology Mild increase since last labs Outpatient appointment to establish with Dr. Choudhury on 06/07, having followed with Dr. Peraza previously Consult Dr. Choudhury Ascending aortic aneurysm Reported stable at 4.2 cm, when he followed serially as outpatient Admission and Anticipated Discharge Date Admission Date: June 07, 2024 Subjective He presents to the emergency department after developing the acute onset of right upper chest area pain, while doing exertional activity. He denies any right lower extremity weakness. He also mentions SOB occasional but is functional for normal activities at [facility]. He denies any associated lightheadedness or dizziness.He was aware his heart rate increased for a while before he presented to ED. His main concerns related to the chest pain are that of his history of pulmonary embolism. He endorses H/O post-herpetic neuralgia in past; but this pain seems different than before. He was sleepy and frustrated as he could not have proper rest after coming to ED. He did not want to interact much but was comfortable to move ahead with whatever he's planned further. He was aware that he is going for stress test today. Review of Systems Review of Systems: As per HPI Physical Exam Physical Exam: The patient is awake, alert and oriented 3, well developed and well nourished, normocephalic and atraumatic, lying in bed and in no acute distress. HEENT--PERRL, EOMI, mucous membranes and oropharynx dry. Neck--supple. No JVD. No bruits. Thyroid normal, trachea midline, no adenopathy. Heart--normal S1 and S2. No murmurs, rubs or gallops. Lungs--clear bilaterally, no respiratory distress, no accessory muscle use. Abdomen--normal bowel sounds and soft. Nontender. Nondistended. Obese Extremities--no cyanosis or clubbing. No edema. Dermatologic--normal skin turgor, normal color, no abnormal lymph nodes, no rash. Neurologic--cranial nerves II through XII grossly intact. Rheumatologic--normal range of motion. Psychiatric--normal affect. Results & Data Results & Data Vital Signs (Past 12 Hours) Vital Signs Temp Pulse Pulse Resp BP BP Pulse Ox 06/07/24 04:24 06/07/24 04:24 36.5 C 69 18 109/69 93 06/07/24 04:00 68 19 123/76 06/07/24 03:00 122/67 06/07/24 02:36 72 11 L 132/84 94 06/07/24 02:00 72 12 132/84 95 06/07/24 01:32 75 17 155/100 H 92 06/07/24 00:56 74 10 L 145/88 H 93 06/07/24 00:56 77 06/07/24 00:05 80 23 183/115 H 96 06/06/24 22:54 84 12 138/88 95 06/06/24 22:00 85 12 126/81 97 06/06/24 21:30 83 12 131/77 95 06/06/24 21:18 84 12 96 06/06/24 21:00 107 H 12 129/88 95 06/06/24 20:54 111 H 06/06/24 20:36 36.8 C 69 14 132/84 92 06/06/24 20:36 89 12 131/77 96 06/06/24 20:36 95 O2 Del Method O2 Flow Rate 06/07/24 04:24 Room Air 06/07/24 04:24 Room Air 06/07/24 04:00 Room Air 06/07/24 03:00 06/07/24 02:36 Nasal Cannula 2 06/07/24 02:00 Nasal Cannula 2 06/07/24 01:32 06/07/24 00:56 Nasal Cannula 2 06/07/24 00:56 06/07/24 00:05 06/06/24 22:54 Nasal Cannula 2 06/06/24 22:00 Nasal Cannula 2 06/06/24 21:30 Nasal Cannula 2 06/06/24 21:18 Room Air 06/06/24 21:00 Room Air 06/06/24 20:54 06/06/24 20:36 Room Air 06/06/24 20:36 Room Air 06/06/24 20:36 Room Air
--- NOTE | 2024-06-07 07:24 | XRay Report ---
XR chest 1V portable HISTORY: Chest pain, nonspecific COMPARISON: Chest 12/19/2022. FINDINGS: The lungs are clear. Cardiac silhouette is normal in size. No pleural effusions. No pneumot horax. IMPRESSION: No acute process. ACT 112: Negative or not required by law. Electronically signed by: Carlin Worthington M.D. 06/07/2024 7:23 AM
[2024-06-07 07:32] LABS: Basophils # (auto) 0.11 K/uL (0.00-0.20); Basophils % (auto) 1.1 %; Eosinophils # (auto) 0.27 K/uL (0.00-0.50); Eosinophils % (auto) 2.7 %; Hematocrit (blood only) 43.8 % (42.0-52.0); Hemoglobin 15.1 g/dl (14.0-18.0); Immature Granulocytes # (auto) 0.04 K/uL (0.01-0.20); Immature Granulocytes % (auto) 0.4 %; Lymphocytes # (auto) 4.21 K/uL (1.20-3.40); Lymphocytes % (auto) 42.7 %; Mean Corpuscular Hemoglobin 30.1 pg (25.0-34.0); Mean Corpuscular Hgb Conc 34.5 g/dL (32.0-36.0); Mean Corpuscular Volume 87.3 fL (80.0-100.0); Mean Platelet Volume 9.6 fL (9.4-12.4); Monocytes # (auto) 0.76 K/uL (0.11-0.59); Monocytes % (auto) 7.7 %; Neutrophils # (auto) 4.48 K/uL (1.40-6.50); Neutrophils % (auto) 45.4 %; Platelet Count 326 K/uL (130-400); RDW Standard Deviation 44.6 fL (36.4-46.3); Red Blood Count 5.02 M/uL (4.70-6.10); White Blood Count 9.87 K/ul (4.8-10.8)
[2024-06-07 07:49] LABS: Albumin Level 3.6 gm/dl (3.4-5.0); Calcium 8.6 mg/dl (8.6-10.3); Creatinine Clr Calc Pharmacy 108.4 ml/min; Est GFR (African American) 102.6 ml/min; Est GFR (Non-African American) 88.5 ml/min; Phosphorus 3.1 mg/dl (2.5-4.9)
[2024-06-07] MEDS: APIXABAN 2.5 MG TAB PO SCH (07:59)
[2024-06-07] MEDS: lisinopril 20 MG TAB PO SCH (07:59)
[2024-06-07 08:01] VITALS: TEMP 98.1
[2024-06-07 12:16] VITALS: PULSE 71; RESP 16; O2SAT 93
[2024-06-07] MEDS: ATROPINE SULFATE 0.1 MG/ML 10ML SYR IV ONE (14:26)
[2024-06-07] MEDS: METOPROLOL TARTRATE 1 MG/ML VIAL IV ONE ×2 (14:27→15:21)
[2024-06-07] MEDS: DOBUTamine HCL 12.5 MG/ML 20 ML VIAL IV ONE (14:27)
[2024-06-07] MEDS: ADENOSINE IV SOLN 3 MG/ML 2 ML VIAL IV ONE (14:28)
--- NOTE | 2024-06-07 16:19 | Discharge Summary ---
Date of Service June 07, 2024 Admission HPI Per Admitting Provider The patient is an 83-year-old male with a past medical history including history of PE on Eliquis, gout, hypercholesterolemia, postherpetic neuralgia, lymphocytosis, obesity, impaired fasting glucose. He presents to the emergency department after developing the acute onset of right upper chest area pain, while doing exertional activity of standing as though prior to arrival. He denies any right lower extremity weakness. He denies any associated lightheadedness or dizziness. He does note that his heart rate increased to about 130 for few minutes duration, and then normalized with rest. His main concerns related to the chest pain are that of his history of pulmonary embolism, and he reports that he has had exertional issues with postherpetic neuralgia in the past Admission Exam Per Admitting Provider The patient is awake, alert and oriented 3, well developed and well nourished, normocephalic and atraumatic, lying in bed and in no acute distress. HEENT--PERRL, EOMI, mucous membranes and oropharynx dry. Neck--supple. No JVD. No bruits. Thyroid normal, trachea midline, no adenopathy. Heart--normal S1 and S2. No murmurs, rubs or gallops. Lungs--clear bilaterally, no respiratory distress, no accessory muscle use. Abdomen--normal bowel sounds and soft. Nontender. Nondistended. Obese Extremities--no cyanosis or clubbing. No edema. Dermatologic--normal skin turgor, normal color, no abnormal lymph nodes, no rash. Neurologic--cranial nerves II through XII grossly intact. Rheumatologic--normal range of motion. Psychiatric--normal affect. Principal Diagnosis Atypical chest pain under evaluation-- pending arrhythmia work-up in outpatient basis. Discharge Exam The patient is awake, alert and oriented 3, well developed and well nourished, normocephalic and atraumatic, lying in bed and in no acute distress. HEENT-PERRL, EOMI Neck-supple. No JVD. No bruits. Thyroid normal, trachea midline, no adenopathy. Heart-S1, S2, M0 Regular Lungs: BL NVBS, No added sound Extremities-No cyanosis or clubbing. No edema. Dermatologic- Warm , non tender, no rash Neurologic-cranial nerves II through XII grossly intact. Rheumatologic-normal range of motion. Psychiatric-Normal affect. Discharge Data Allergies Allergy/AdvReac Type Severity Reaction Status Date / Time aspirin Allergy Severe HIVES, Verified 06/06/24 21:48 SWELLING IN FACE pneumococcal 7-valent Allergy Unknown Unknown Verified 06/06/24 21:48 conjugate to [From Prevnar] tetanus and diphtheria Allergy Unknown Unknown Verified 06/06/24 21:48 toxoids [From TDVAX] Consultations 06/07/24 01:17 ED Decision to Admit Stat Ordered Studies 06/06/24 21:19 CT angio chest PE protocol Stat Hospital Course (1) Exertional chest pain: (2) Tachycardia: (3) Hypokalemia: (4) Hypercholesterolemia: (5) History of pulmonary embolism: (6) Postherpetic neuralgia: (7) Lymphocytosis: Plan The patient is an 83-year-old male with a past medical history including history of PE on Eliquis, gout, hypercholesterolemia, postherpetic neuralgia, lymphocytosis, obesity, impaired fasting glucose, admitted for evaluation of exertional chest pain, atypical for any cardiac origin. Exertional chest pain Atypical pain for cardiac event, however age and risk factors supports full work up Admitted for overnight Tele monitor; NSR CT-Angio PE protocol negative for PE ECG: Sinus Tachycardia with LAD, Non Sp ST-T wave changes Serial Troponin: 5.4--6---6.7 Dobutamine Stress: No ST-T changes, No signs of ischemia, SVTs see( could be b/c of Dobutamine vs arrhythmia) Need more cardiac work up in Out-patient basis. CBC/CMP: Benign TSH: 5.04 History of PE Saddle embolus in 2022 likely secondary to COVID Continue apixaban 5 mg OD PT/INR/APTT: 10.5 Hypokalemia Potassium 3.4, magnesium 2.1 Received potassium chloride 10 mill equivalent IV x 1 Add Klor-Con 40 mill equivalents p.o. Repeat lab: K: 4----<3.4 Potassium rich diet as per instruction section. Lymphocytosis- Absolute lymphocyte count has been followed by hematology Mild increase since last labs Outpatient appointment to establish with Dr. Choudhury on 06/07, having followed with Dr. Peraza previously Consult Dr. Choudhury Ascending aortic aneurysm Reported stable at 4.2 cm, when he followed serially as outpatient Total Time Total Time Spent Total Time Spent (In Minutes): <30 Discharge Plan Discharge Items Patient Disposition: Home - Self-Care Reason For Visit: CHEST PAIN, HYPOKALEMIA, LYMPHOCYTOSIS Discharge Diagnosis: Atypical chest pain with no underlying cause so far; Arrhythmia work-up pending in clinic Condition on Discharge: Fair Activity: Per Instructions section Non-emergency contact: Primary Care Provider and Seo Consultant Call non-emergency contact if: your symptoms worsen Follow-up/Referrals: Eden Boo CRNP [Primary Care Provider] - 06/18/24 2:00 pm Diet: Heart Healthy Addtl Attending Provider Instructions: You were evaluated for chest pain, and while no signs of suppressed blood supply were detected on the stress test, you experienced some supraventricular tachycardias (SVTs) due to the Dobutamine used during the test. This could be just because of Dobutamine, but could also be because of underlying arrhythmia undetected so far. Hence this indicates that further investigation into your arrhythmia is necessary. Cardiology Appointment: It is essential to follow up with a management aide to further evaluate your arrhythmia and manage your condition. Please schedule an appointment with your management aide as soon as possible. Cardiac Monitoring: Your management aide may recommend setting up a cardiac rn device, such as a loop recorder, to continuously monitor your heart's rhythm over time. This will help in diagnosing and managing your arrhythmia more effectively. -Be aware of symptoms: Monitor for symptoms such as palpitations, dizziness, shortness of breath, or any new or worsening chest pain. If you experience any of these symptoms, contact your PCP immediately. -Medications: Take any prescribed medications as directed and discuss any concerns or side effects with your management aide. -Healthy Lifestyle: Maintain a heart-healthy lifestyle by eating a balanced diet, engaging in regular exercise, managing stress, and avoiding excessive caffeine or alcohol. -Emergency Contact: If you experience severe symptoms, such as severe chest pain, fainting, or severe shortness of breath, seek emergency medical attention immediately -Documentation: Keep a record of any symptoms or changes in your condition to discuss with your management aide during your follow-up visits. -Follow Instructions: Adhere to any additional instructions or recommendations provided by your healthcare team. If you have any questions or concerns, please do not hesitate to reach out to your healthcare provider. 2.Consume Potassium rich food since your potassium was low on admission. Bananas: A well-known source of potassium. Oranges and [place] Juice: Good source of potassium. Avocados: High in potassium and healthy fats. Kiwi: Offers a good amount of potassium along with other nutrients. Melons: Such as cantaloupe and honeydew. 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 - F/U BMP for hypokalemia on admission( corrected before discharge) Pending Studies at Discharge: No Stand-Alone Forms: My [facility] Age of Learning, Smoking Cessation Medications and DC Order Prescriptions: Continued lisinopril-hydrochlorothiazide 20-25 mg tablet 1 tab PO QAM Qty: 90 3RF atorvastatin [Lipitor] 10 mg tablet 10 mg PO HS Qty: 90 3RF apixaban 2.5 mg tablet 2.5 mg PO BID Qty: 90 3RF Discharge Orders: Discharge Order (Routine); Ordered 06/07/24 Ordered By: Katina Baez/Other Patient Handouts: Hypokalemia Dc, Living with Herpes, Identifying Your Heart Risks Admission Data Admit Date/Time: 06/07/24 02:07 Attending Provider: Oswaldo Kunz Admit Provider: Robert Chavarria Primary Care Provider: Eden Boo Other Providers: Robert Chavarria Other Interventions: Discharge Summary Assessment (RN) Last Done: 06/07/24 16:33 Supervising Physician Co-Signing Physician Notes I personally examined the patient and verified all garcia points of history and exam, discussed case, and agree with decision making with Dr Quezada feeling better feeling ok to go home. discussed SVT during dobutamine and tachyarrhthmia likely culprit for sx vitals noted nad heent nc at mmm breathing unlabored no accessory muscles good effort skin no rashes no pallor or icterus chest pain/palpitations - suspect SVT - stress negative for ischemia. stable for home. monitor to confirm SVT ambulatory, but given that it fits scenario - set up EP appt as well otherwise as above Resident Activity Tracking Resident Involvement: Resident Care Provided Care Provided: Adult Hospital Medicine
[2024-06-07 16:36] VITALS: BP 109/69
--- NOTE | 2024-06-07 18:32 | Billing Data ---
Date of Service June 07, 2024 Coding Level of Care Code 61256 IN/OBS DISCH 30 MIN/LESS
--- NOTE | 2024-06-07 20:53 | XCELERA ---
[id number]
[2024-06-07] MEDS ORDERED: ATORVASTATIN 10 MG TAB PO SCH (21:00)
--- NOTE | 2024-06-07 23:46 | Electrocardiogram Report ---
Test Reason : Blood Pressure : */* mmHG Vent. Rate : 108 BPM Atrial Rate : 108 BPM P-R Int : 198 ms QRS Dur : 86 ms QT Int : 334 ms P-R-T Axes : 39 -46 60 degrees QTcB Int : 447 ms Sinus tachycardia Left axis deviation Nonspecific ST and T wave abnormality Abnormal ECG When compared with ECG of 22-Dec-2022 06:24, Vent. rate has increased by 38 bpm T wave inversion no longer evident in Inferior leads T wave inversion no longer evident in Anterolateral leads QT has shortened Confirmed by Jasbir Bell ([id number]) on 06/07/2024 11:46:10 PM Referred By: REFERRED SELF Confirmed By: Jasbir Bell
== END 2024-06-07 17:10 | disposition home or self-care (01) ==
LOC: 2W 20:52 → ED 20:52 → SUATTDRO 06-07 02:07 → 2W 06-07 04:00